=== PATIENT | male | born 1955 | race Caucasian/White ===

== ENCOUNTER 2017-04-02 16:01 | Outpatient (CLI) ==
[2017-04-02 16:09] LABS: BASOPHILS % (AUTO) 0.2 % (0.0-3.0); EOSINOPHILS % (AUTO) 0.1 % (0.0-7.0); HEMATOCRIT 45.8 % (42.0-52.0); HEMOGLOBIN 15.9 g/dl (14.0-18.0); IMMATURE GRANULOCYTE % (AUTO) 0.4 % (0.0-5.0); LYMPHOCYTES # (AUTO) 2.3 K/uL (0.60-3.4); LYMPHOCYTES % (AUTO) 22.9 (10.0-50.0); MEAN CORPUSCULAR HEMOGLOBIN 30.1 pg (27.0-31.0); MEAN CORPUSCULAR HGB CONC 34.7 (31.8-35.4); MEAN CORPUSCULAR VOLUME 86.6 fl (80.0-94.0); MONOCYTES # (AUTO) 0.7 K/uL (0.4-2.0); MONOCYTES % (AUTO) 6.8 (0-10); NEUTROPHILS # (AUTO) 7.1 K/ul (2.0-6.9); NEUTROPHILS % (AUTO) 69.6; PLATELET COUNT 283 10^3/uL (140-440); RED BLOOD COUNT 5.29 10^6/ul (4.70-6.10); WHITE BLOOD COUNT 10.23 K/ul (4.2-10.2)
[2017-04-02 16:16] LABS: BILIRUBIN,URINE Negative (NEGATIVE); KETONES,URINE Negative (NEGATIVE); LEUKOCYTE ESTERASE ,URINE Negative (NEGATIVE); NITRITE,URINE Negative (NEGATIVE); PH,URINE 5.5 (5-9); PROTEIN,URINE Negative (NEGATIVE); URINE, BLOOD 1+ (NEGATIVE)
[2017-04-02 16:19] LABS: ADD URINE MICROSCOPIC YES
[2017-04-02 16:20] LABS: BACTERIA,URINE TRACE (NOT PRESENT)
[2017-04-02 16:33] LABS: ALBUMIN 4.3 g/dL (3.4-5.0); ALBUMIN/GLOBULIN RATIO 1.16; ANION GAP 17.1; BILIRUBIN,TOTAL 0.49 mg/dL (0.00-1.20); BUN/CREATININE RATIO 18.88; CHOL/HDL RATIO 4.4 (4.5-6.4); CREATININE 0.9 mg/dL (0.60-1.10); POTASSIUM 4.1 mmol/L (3.5-5.1)
== END 2017-04-02 16:02 | disposition home or self-care (01) ==
LOC: LAB 16:01
PROVIDERS: ATTEND General Practice
DX: F43.9 Reaction to severe stress, unspecified (principal); Z12.5 Encounter for screening for malignant neoplasm of prostate; Z79.899 Other long term (current) drug therapy
CPT/HCPCS: 36415; 80053; 80061; 81001; 85025

== ENCOUNTER 2017-04-12 07:15 | Outpatient (CLI) ==
--- NOTE | 2017-04-12 09:07 | US ---
EXAM: Renal ultrasound. History: Microscopic hematuria. Comparison: CT abdomen pelvis 11/04/2007 Technique: Multiple sonographic images through the kidneys were obtained. Color duplex Doppler was used to interrogate vascular flow. Findings: Bladder is not well distended. Neither ureteral jet was seen within the bladder. The right kidney measures 9.1 cm in long length demonstrating normal cortical echogenicity. Mild hy dronephrosis. 2.8 cm anechoic right renal cyst. No shadowing calculi. The left kidney measures 10.7 cm in long length demonstrating normal cortical echogenicity with mild hydronephrosis. No masses or shadowing calculi. Impression: 1. Mild bilateral hydronephrosis. 2. Simple right renal cyst.
== END 2017-04-12 07:16 | disposition home or self-care (01) ==
LOC: RAD 07:15
PROVIDERS: ATTEND General Practice
DX: R31.29 Other microscopic hematuria (principal)
CPT/HCPCS: 76770

== ENCOUNTER 2017-10-22 13:19 | Outpatient (CLI) | payer OTHER | END 2017-10-22 13:20 | disposition home or self-care (01) | LOC: LAB 13:19 | PROVIDERS: ATTEND General Practice | DX: R05 Cough (principal); J02.9 Acute pharyngitis, unspecified | CPT/HCPCS: 87502; 87651 ==

== ENCOUNTER 2017-11-25 16:22 | Emergency (ER) ==
[2017-11-25 16:28] VITALS: BP 185/110; TEMP 98.9; BMI 28.1
[2017-11-25] MEDS ORDERED: SOLU-MEDROL 125 MG IM STA (16:51)
--- NOTE | 2017-11-25 16:55 | ED.PDOC ---
General ED Provider: Dr. VIDYA SOARES Chief Complaint: Back Pain Stated Complaint: Patient is a 62 year old femle who states that he has been using a hoe and lifting his ill 80 lb dog for the last few days. Since then heh as had severe lower back pain. Time Seen by Physician: 16:53 Mode of Arrival: Walk-In Information Source: Patient Exam Limitations: No limitations [facility] and Triage Documentation Reviewed and Agree: Yes Reviewed sepsis parameters & appropriate labs ordered?: No System Inflammatory Response Syndrome: Not Applicable Sepsis Protocol: For patient's 13 years and over: Temp is 96.8 and below OR 101 and greater Pulse >90 BPM Resp >20/minute Acutely Altered Mental Status Are patient's symptoms suggestive of a new infection, such as: -Pneumonia -Skin, Soft Tissue -Endocarditis -UTI -Bone, Joint Infection -Implantable Device -Acute Abdominal Infection -Wound Infection -Meningitis -Blood Stream Catheter Infection -Unknown System Inflammatory Response Syndrome: Not Applicable Musculoskeletal Complaint Exam - Back Pain Complaint/Exam Mechanism of Injury: Reports: No known trauma Onset/Duration: 3 days ago Symptoms Are: Still present Timing: Constant Initial Severity: Moderate Current Severity: Severe Location: Reports: Discrete Character: Reports: Aching, Throbbing Aggravating: Reports: Movements, Lifting, Bending, Walking Alleviating: Reports: None Associated Signs and Symptoms: Denies: Swelling, Redness, Bruising, Fever, Weakness, Numbness, Tingling, Abdominal pain, Flank pain, Bladder incontinence, Bowel incontinence, Weight loss, Pain with weight bearing Related History: Reports: Similar episode TAD Risk Factors: Reports: None AAA Risk Factors: Reports: None Cauda Equina Risk Factors: Reports: None Epidural Abcess Risk Factors: Reports: None Related Surgical History: Reports: None Focal Tenderness: Yes Paraspinal Muscle Tenderness: Yes Paraspinal Muscle Spasm: Yes Scoliosis: No SLR Test: Right Negative, Left Negative Hip Motion Testing Pain: Right Negative, Left Negative Focal Weakness: Present: None Focal Sensory Loss: Present: None Gait: Present: Normal, Abnormal Back Picture: 1 - tenderness Differential Diagnoses: Herniated Disk, Strain, Sprain Review of Systems - Review Of Systems Constitutional: Reports: No symptoms Eyes: Reports: No symptoms Ears, Nose, Mouth, Throat: Reports: No symptoms Respiratory: Reports: No symptoms Cardiac: Reports: No symptoms GI: Reports: No symptoms : Reports: No symptoms Musculoskeletal: Reports: Back pain Skin: Reports: No symptoms Neurological: Reports: No symptoms Endocrine: Reports: No symptoms Hematologic/Lymphatic: Reports: No symptoms All Other Systems: Reviewed and Negative Past Medical History - Past Medical History Previously Healthy: Yes Endocrine: Reports: None Cardiovascular: Reports: Hypertension Respiratory: Reports: None Hematological: Reports: None Gastrointestinal: Reports: None Genitourinary: Reports: None Neuro/Psych: Reports: Migraine, Depression Musculoskeletal: Reports: None Cancer: Reports: None - Surgical History General Surgical History: Reports: Appendectomy - Family History Family History: Reports: Unknown - Social History Smoking Status: Never smoker Hx Substance Use: No Alcohol Screening: None - Immunizations Tetanus Shot up to Date: Yes Physical Exam - Physical Exam Appearance: Ill-appearing Ill-appearing: Mild Pain Distress: Severe Neck: Supple Respiratory: Airway patent, Breath sounds clear, Breath sounds equal, Respirations nonlabored Cardiovascular: RRR, Pulses normal, No rub, No murmur GI/: Soft, Nontender, No masses, Bowel sounds normal, No Organomegaly Musculoskeletal: Limited ROM Skin: Warm, Dry, Normal color Neurological: Sensation intact, Motor intact, Reflexes intact, Cranial nerves intact, Alert, Oriented Psychiatric: Anxious Critical Care Note - Critical Care Note Total Time (mins): 0 Course - Course Orders, Labs, Meds: Orders Category Date Time Status Methylprednisolone Sod Succ/Pf [Solu-Medrol 125 mg] MEDS 11/25/17 16:51 Discontinued 125 mg IM ONCE STA Medications Discontinued Medications Generic Name Dose Route Start Last Admin Trade Name Freq PRN Reason Stop Dose Admin Methylprednisolone Sodium Succinate 125 mg 11/25/17 16:51 11/25/17 17:01 Solu-Medrol 125 Mg IM 11/25/17 16:52 125 mg ONCE STA Administration Vital Signs: Temp Pulse Resp BP Pulse Ox 11/25/17 16:23 98.9 F 104 H 20 185/110 H 98 Departure - Departure Time of Disposition: 16:53 Disposition: HOME SELF-CARE Discharge Problem: Backache Instructions: Back Pain (ED) Condition: Stable Pt referred to PMD for follow-up: Yes IPMP verified?: No Additional Instructions: Follow up with PCP in 3-4 days Take medications as prescribed Prescriptions: Hydrocodone/Acetaminophen [Dawn 5-325 Tablet] 1 tab PO Q6HR PRN #20 tablet PRN Reason: PAIN Allergies/Adverse Reactions: Allergies butorphanol tartrate [From Stadol] Allergy (Unverified 11/25/17 16:29) chlorpromazine HCl [From Thorazine] Allergy (Unverified 11/25/17 16:29) doxepin Allergy (Unverified 11/25/17 16:29) ketorolac tromethamine [From Toradol] Allergy (Unverified 11/25/17 16:29) nalbuphine HCl [From Nubain] Allergy (Unverified 11/25/17 16:29) prochlorperazine edisylate [From Compazine] Allergy (Unverified 11/25/17 16:29) prochlorperazine maleate [From Compazine] Allergy (Unverified 11/25/17 16:29) zolpidem tartrate [From Ambien] Allergy (Unverified 11/25/17 16:29) causes sleep walking RONY Inhibitors Adverse Reaction (Intermediate, Unverified 11/25/17 16:29) Cough Possibly related to Lisinopril. Medication was stopped on 11/21/17. lisinopril Adverse Reaction (Intermediate, Unverified 11/25/17 16:29) Cough Possibly related to Lisinopril. Medication was stopped 11/21/17. Home Medications: Ambulatory Orders Fluticasone Propionate [Flonase] 16 gm NS PRN 10/22/17 Hydrocodone/Acetaminophen [Dawn 5-325 Tablet] 1 tab PO Q6HR PRN #20 tablet Disposition Discussed With: Patient
== END 2017-11-25 17:56 | disposition home or self-care (01) ==
LOC: ED 16:22
DX: M54.5 Low back pain (principal); X50.0XXA Overexertion from strenuous movement or load, initial encounter
CPT/HCPCS: 96372; 99282

== ENCOUNTER 2018-07-08 08:00 | Outpatient (RCR) ==
--- NOTE | 2018-06-28 13:51 | RS.OPPTEV2 ---
Date of Note: 06/27/18 Visit #: 1 Number of visits approved by Insurance: 12+eval Date of Evaluation: 06/27/18 Payer Source: [place] Surgery Performed?: No Treatment Diagnosis: LBP History of Condition/Mechanism of Injury:: pt had a fall in Aug 2017 landing on concrete. pt has long history of L knee and foot pain. Prior Level of Function.....Patient was independent with: ADL's, Self Care, Caregiving, Ambulation/Mobility, Community Integration/Access Functional Limitations: Sleep, Lifting, Carrying, Sitting, Bending, Squatting, Ambulation, Community Access/Integration Current Subjective/complaints:: pt states he is fighting "3 things, my foot, my knee and my back" he states "I think they are related." pt states that he has a constant pain in his back with occaional radiating pain into BLE. Treatment Side (optional): N/A *Precautions: n/a Medical History Medical History: Hypertension, Arthritis Surgical History Comments:: appey, shld sx, knee arthroscopic sx. Smoking Status: Former smoker Hx Home Medications: lortab, losartan, flexeril Patient's Goals: decrease pain in low back. Pain Assessment - Pain Description Pain Location: Low back pain, L foot pain, L knee pain Pain Description: constant ache with occasional sharp pains. Current Pain Intensity: LBP 7/10, L knee 7/10, L foot 9/10 Functional Outcome Measure Oswestry LBP: 26 (52%) - G Codes & Severity Modifier G Codes & Modifier: mobility walking and moving around current: CK. mobility walking and moving around goal: CJ Source of G Code score: oswestry LBP scale Observation - Observation Inspection: pt appears shifted to R. Leg length discrepancy with RLE > LLE Posture: Forward Head, Rounded Shoulders, Increased Thoracic Kyphosis, Decreased Lumbar Lordosis Handedness: Right Gait - Gait Pattern Gait Comments: pt amb with pronated B feet with valgus on R knee with antalgic gait with decreased stance time on the L General Range of Motion: BUE WFL's. BLE WFL's with pain in lumbar spine and B knees with ROM. Muscle Strength: BUE 5/5. LLE hip flex 3+/5, knee flex/ext 4-/5 w pain, ankle DF/PF 4-/5. RLE hip flex 4-/5, knee flex/ext 4/5, ankle DF/PF 4+/5 - ROM Lumbar Flexion: Hand reach to Mid-Thighs Sidebending to Left: Reach to Mid-thigh Sidebending to Right: Reach to Mid-thigh Lumbar Spine ROM Limitations: Soft Tissue Tightness, Muscle Weakness, Pain Comments: pt with increased pain with lumbar ROM. - Strength Trunk Extension: 4- Good- Trunk Flexion: 3- Fair- Trunk Lateral Flexion: 3- Fair- Trunk Rotation: 3+ Fair+ - Special Tests SLR Test: Positive Left Palpation Palpation Findings: Tenderness, Trigger Point Comments:: pt with muscle guarding in lumbar spine with tenderness and trigger points on L lumbar proximal to SI and tenderness at L SI joint Sensation - Sensation Right Upper Extremity: Intact/Normal Left Upper Extremity: Intact/Normal Right Lower Extremity: Intact/Normal Left Lower Extremity: Impaired (pt reports decreased slight decreased sensation LLE) Balance - Sitting Balance Static Sitting Balance: Good Dynamic Sitting Balance: Good - Standing Balance Static Standing Balance: Good Dynamic Standing Balance: Good - Treatment Modality: Electrical Stim Unattended Parameters/Method Applied: IFC x 20 mins at 14ma Treatment Area: L lumbosacral area Patient Position: Left Sidelying - Heat/Cryotherapy Treatment: Hot Pack Comments:: lumbar spine Interventions - Exercise/Activities/Manual Therapy Exercises/Activities: attempted muscle energy technique, however pt unable to tolerate at this time. pt performed pelvic tilts x 4, gentle hamstring stretch, piriformis stretch, gentle ext stretch Manual Therapy: n/a HOME EXERCISE PROGRAM: pt given written HEP including : pelvic tilts, gentle hamstring stretch, piriformis stretch, standing lumbar ext stretch - Charges Timed Code Treatment Minutes: 47 Total Treatment Time: 63 Procedures billed for this date of service:: eval med, estim unattended, hot pack EVALUATION COMPLEXITY LEVEL EVALUATION COMPLEXITY LEVEL: HISTORY: Medium (htn, OA, low back pain), EXAM OF BODY SYSTEMS: Medium (pain, posture, strength, ROM), CLINICAL PRESENTATION: Medium (evolving), CLINICAL DECISION MAKING: Medium Assessment Assessment: pt presents with long hx of LBP with L knee and foot pain. pt with decreased lumbar ROM as well as decreased strength. pt with muscle tightness and guarding. Patient Education: Home Exercise Program, Education of Plan of Care Rehab Potential: Good Short Term Goals Goal #1: pt independent with initial HEP Goal to be met by: 07/18/18 Goal #2: pt with decreased pain in lumbar spine < 6/10 with activity Goal to be met by: 07/18/18 Goal #3: pt with decreased muscle tightness in hamstrings/piriformis R equal to L Goal to be met by: 07/18/18 Goal #4: Leg length equal BLE Can Sealer Goals Goal #1: pt demonstrate Lumbar ROM WFL's Goal to be met by: 08/08/18 Goal #2: pt with decreased pain < 4/10 with activity Goal to be met by: 08/08/18 Goal #3: pt demonstrate improved oswestry scale to < 20 Goal to be met by: 08/08/18 Plan - Treatment to be Provided Procedures: Therapeutic Exercises, Therapeutic Activity, Manual Therapy, Massage Modalities: Electrical Stimulation, Ultrasound/Phonophoresis, Cryotherapy, Hot Packs - Treatment Plan Frequency: 2-3x a week Duration: 6 weeks Dates of Intermediate Goals: 08/08/18 Expiration date of current Insurance Approval:: n/a - Treatment Code (1) Low back pain Code(s): M54.5 - LOW BACK PAIN (2) Decreased strength Code(s): R53.1 - WEAKNESS (3) Muscle tightness Code(s): M62.89 - OTHER SPECIFIED DISORDERS OF MUSCLE
--- NOTE | 2018-07-01 11:50 | RS.OPPTDN ---
Subjective Date of Note: 07/01/18 Visit #: 2 Number of visits approved by Insurance: 12 + eval= 13 total Date of Evaluation: 06/27/18 P[place] Source[place] Treatment Diagnosis: LBP Current Subjective/complaints:: pt states he was pretty "wiped out" after last visit. States he has been trying to do HEP with assist of . *Precautions: n/a Pain Assessment - Pain Description Pain Location: lumbar spine, L knee and L foot Current Pain Intensity: 7 Worst Pain Intensity: 8 - Treatment Modality: Ultrasound Parameters/Method Applied: 1.5 w/cm2 x 7 mins Treatment Area: R lumbar spine Patient Position: Left Sidelying - Heat/Cryotherapy Treatment: Hot Pack Comments:: lumbar spine x 20 mins Interventions - Exercise/Activities/Manual Therapy Exercises/Activities: pt received hamstring stretch, piriformis stretch, trunk rotation stretch, gentle knee to chest. Performed pelvic tilts x 5 reps, isometric hip add, resisted hip abd with red theraband x 10 reps with verbal cues for technique as well as multiple rest periods. Total minutes of Exercise: 22 mins Manual Therapy: pt received deep tissue massage with trigger point release to lumbar spine. pt with large trigger point to R lumbar spine, and L lumbar spine. Total minutes of Manual Therapy: 12 mins HOME EXERCISE PROGRAM: pt given written HEP including : pelvic tilts, gentle hamstring stretch, piriformis stretch, standing lumbar ext stretch. Added today : isometric hip add, resisted hip abd with red theraband - Charges Timed Code Treatment Minutes: 41 Total Treatment Time: 61 Procedures billed for this date of service:: exercise, manual therapy, ultrasound, hot pack Assessment: pt continues with significant pain in lumbar spine with significant hamstring, piriformis tightness. pt pain limits ability to perform daily activities. Patient Education: Home Exercise Program, Education of Plan of Care Patient demonstrates compliance with HEP?: Yes Short Term Goals Goal #1: pt independent with initial HEP Goal to be met by: 07/18/18 Progress towards Goal:: Progressing Goal #2: pt with decreased pain in lumbar spine < 6/10 with activity Goal to be met by: 07/18/18 Goal #3: pt with decreased muscle tightness in hamstrings/piriformis R equal to L Goal to be met by: 07/18/18 Progress towards Goal:: Progressing Goal #4: Leg length equal BLE Goal to be met by: 07/18/18 Soil Engineer Goals Goal #1: pt demonstrate Lumbar ROM WFL's Goal to be met by: 08/08/18 Progress towards goal: Progressing Goal #2: pt with decreased pain < 4/10 with activity Goal to be met by: 08/08/18 Goal #3: pt demonstrate improved oswestry scale to < 20 Goal to be met by: 08/08/18 Plan Dates of Soil Engineer Goals: 08/08/18 Expiration date of current Insurance Approval:: n/a PLAN: plan to continue to work on stretching and core strengthening as well as modalities to decrease pain.
--- NOTE | 2018-07-03 09:57 | RS.OPPTDN ---
Subjective Date of Note: 07/03/18 Visit #: 3 Number of visits approved by Insurance: 12 + eval Date of Evaluation: 06/27/18 P[place] Treatment Diagnosis: LBP *Precautions: n/a Pain Assessment - Pain Description Pain Location: low back pain Pain Description: Sharp, Aching Current Pain Intensity: 8-9/10 Other Comments regarding Pain:: pt states pain is much worse today because he worked on his dog kennel yesterday. - Treatment Modality: Ultrasound Parameters/Method Applied: 1.5w/cm2 x 8 mins Treatment Area: R lumbar area Patient Position: Prone - Heat/Cryotherapy Treatment: Hot Pack Comments:: lumbar Interventions - Exercise/Activities/Manual Therapy Exercises/Activities: pt unable to tolerate any stretches or exercises this visit due to increased pain. Manual Therapy: Deep tissue massage with trigger point release to lumbar spine. pt did have some relief with trigger point release. Total minutes of Manual Therapy: 12 mins HOME EXERCISE PROGRAM: pt given written HEP including : pelvic tilts, gentle hamstring stretch, piriformis stretch, standing lumbar ext stretch. Added today : isometric hip add, resisted hip abd with red theraband - Charges Timed Code Treatment Minutes: 26 Total Treatment Time: 52 Procedures billed for this date of service:: manual therapy, ultrasound, hot pack Assessment: pt with increased LBP this visit with pain radiating into thighs. pt continues with muscle guarding and trigger points in lumbar spine. Advised pt to try cold pack and rest when returned home. Patient Education: Home Exercise Program, Education of Plan of Care Patient demonstrates compliance with HEP?: Yes Short Term Goals Goal #1: pt independent with initial HEP Goal to be met by: 07/18/18 Progress towards Goal:: Progressing Goal #2: pt with decreased pain in lumbar spine < 6/10 with activity Goal to be met by: 07/18/18 (8-05/20) Goal #3: pt with decreased muscle tightness in hamstrings/piriformis R equal to L Goal to be met by: 07/18/18 Progress towards Goal:: Not Met Goal #4: Leg length equal BLE Goal to be met by: 07/18/18 Progress towards Goal:: Not Met Half-Way Goals Goal #1: pt demonstrate Lumbar ROM WFL's Goal to be met by: 08/08/18 Progress towards goal: Progressing Goal #2: pt with decreased pain < 4/10 with activity Goal to be met by: 08/08/18 Goal #3: pt demonstrate improved oswestry scale to < 20 Goal to be met by: 08/08/18 Plan Dates of Fur Cleaner Goals: 08/08/18 Expiration date of current Insurance Approval:: n/a PLAN: Continue to progress with lumbar stretching, core strengthening, modalities to decrease pain.
--- NOTE | 2018-07-05 13:26 | RS.OPPTDN ---
Subjective Date of Note: 07/05/18 Visit #: 4 Number of visits approved by Insurance: 12 + eval Date of Evaluation: 06/27/18 P[place] Treatment Diagnosis: LBP Current Subjective/complaints:: pt states he feels the exercises are helping, states he has been trying to do them at home. *Precautions: n/a Pain Assessment - Pain Description Pain Location: low back pain L worse than R Pain Description: Sharp, Aching Current Pain Intensity: 6/10 Other Comments regarding Pain:: after treatment -01/17 - Treatment Modality: Ultrasound Parameters/Method Applied: 1.5w/cm2 x 8 mins Treatment Area: lumbar area focus on R lumbosacral Patient Position: Left Sidelying - Heat/Cryotherapy Treatment: Hot Pack Comments:: lumbar spine Interventions - Exercise/Activities/Manual Therapy Exercises/Activities: pt received BLE hamstring, piriformis and knee to chest gently. Isometric hip add x 10, resisted hip abd with red t band x 10, pelvic tilt x 5, gentle HS with abd and back stabilized. Gentle muscle energy with R hip isometric hip flex, L with isometric hip ext Total minutes of Exercise: 21 Manual Therapy: Deep tissue massage with trigger point release to lumbar spine. pt continues with large area of trigger points and muscle guarding to R lumbosacral area with point tenderness to R SI Total minutes of Manual Therapy: 12 HOME EXERCISE PROGRAM: pt given written HEP including : pelvic tilts, gentle hamstring stretch, piriformis stretch, standing lumbar ext stretch. Added today : isometric hip add, resisted hip abd with red theraband - Charges Timed Code Treatment Minutes: 41 Total Treatment Time: 60 Procedures billed for this date of service:: ex, manual tx, u/s hot pack Assessment: pt with decreased pain this visit able to participate with ex. Pt continues with muscle tightness however is able to tolerate hamstring and gentle knee to chest stretching. Patient Education: Home Exercise Program, Education of Plan of Care Patient demonstrates compliance with HEP?: Yes Short Term Goals Goal #1: pt independent with initial HEP Goal to be met by: 07/18/18 Progress towards Goal:: Met Goal #2: pt with decreased pain in lumbar spine < 6/10 with activity Goal to be met by: 07/18/18 (8-05/20) Progress towards Goal:: Progressing Goal #3: pt with decreased muscle tightness in hamstrings/piriformis R equal to L Goal to be met by: 07/18/18 Progress towards Goal:: Progressing Goal #4: Leg length equal BLE Goal to be met by: 07/18/18 Progress towards Goal:: Progressing Forensic Economist Goals Goal #1: pt demonstrate Lumbar ROM WFL's Goal to be met by: 08/08/18 Progress towards goal: Progressing Goal #2: pt with decreased pain < 4/10 with activity Goal to be met by: 08/08/18 Goal #3: pt demonstrate improved oswestry scale to < 20 Goal to be met by: 08/08/18 Progress towards goal: Progressing Plan Dates of Forensic Economist Goals: 08/08/18 Expiration date of current Insurance Approval:: n/a PLAN: continue to work on core strengthening, gentle stretching, modalities and manual therapy to decrease pain.
--- NOTE | 2018-07-08 10:14 | RS.OPPTDN ---
Subjective Date of Note: 07/08/18 Visit #: 5 Number of visits approved by Insurance: 12 + eval Date of Evaluation: 06/27/18 P[place] Source[place] Treatment Diagnosis: LBP Current Subjective/complaints:: pt states he is hurting a bit worse today. States he lifted something a little heavy instead of waiting for to help. *Precautions: n/a Pain Assessment - Pain Description Pain Location: lumbar R worse than L Pain Description: Sharp, Aching Current Pain Intensity: 8 - Heat/Cryotherapy Treatment: Hot Pack Comments:: lumbar spine - Traction Treatment Method: Mechanical, Lumbar Patient Position: Supine Amount of Force Applied: 50lb Hold Time: 30sec Rest Time: 5sec Duration of treatment: 10 mins Traction Treatment Comment: pt states it felt good and relieved some symptoms during treatment. Interventions - Exercise/Activities/Manual Therapy Exercises/Activities: pt received lumbar traction and stated he thought he was done for today. States that he feels like it helped but can't do anymore therapy today. Manual Therapy: n/a HOME EXERCISE PROGRAM: pt given written HEP including : pelvic tilts, gentle hamstring stretch, piriformis stretch, standing lumbar ext stretch. Added today : isometric hip add, resisted hip abd with red theraband - Charges Timed Code Treatment Minutes: 21 Total Treatment Time: 38 Procedures billed for this date of service:: mechanical traction, hot pack Assessment: pt continues with significant pain with muscle tightness and guarding. pt unable to tolerate ex or ultrasound this visit after traction. Will reassess pain on next visit. Patient Education: Home Exercise Program, Education of Plan of Care Patient demonstrates compliance with HEP?: Yes Short Term Goals Goal #1: pt independent with initial HEP Goal to be met by: 07/18/18 Progress towards Goal:: Met Goal #2: pt with decreased pain in lumbar spine < 6/10 with activity Goal to be met by: 07/18/18 (8-9) Progress towards Goal:: Progressing Goal #3: pt with decreased muscle tightness in hamstrings/piriformis R equal to L Goal to be met by: 07/18/18 Progress towards Goal:: Progressing Goal #4: Leg length equal BLE Goal to be met by: 07/18/18 Progress towards Goal:: Progressing Dental Appliance Fixer Goals Goal #1: pt demonstrate Lumbar ROM WFL's Goal to be met by: 08/08/18 Progress towards goal: Progressing Goal #2: pt with decreased pain < 4/10 with activity Goal to be met by: 08/08/18 Goal #3: pt demonstrate improved oswestry scale to < 20 Goal to be met by: 08/08/18 Progress towards goal: Progressing Plan Dates of Dental Appliance Fixer Goals: 08/08/18 Expiration date of current Insurance Approval:: n/a PLAN: plan to reassess pain on next visit, may try traction second time and continue with gentle stretching and strengthening.
== END 2018-07-10 23:59 ==
DX: M54.5 Low back pain (principal); R53.1 Weakness; M62.89 Other specified disorders of muscle

== ENCOUNTER 2019-05-09 09:00 | Outpatient (RCR) | payer OTHER ==
--- NOTE | 2019-04-21 11:58 | RS.OPPTEV2 ---
Date of Note: 04/21/19 Visit #: 1 Number of visits approved by Insurance: eval +14 visits Date of Evaluation: 04/21/19 [place] Surgery Performed?: Yes (L TKR 04/15/19) Treatment Diagnosis: OA L knee History of Condition/Mechanism of Injury:: Pt with long history of B knee pain due to OA. No definite injury noted. pt underwent L TKR on 04/15/19. DC from hospital 04/16/19. Prior Level of Function.....Patient was independent with: ADL's, Self Care, Caregiving, Ambulation/Mobility, Community Integration/Access Level of Function: prior to surgery pt amb independently without cane with pain in B knees, L foot and pt does have chronic LBP. pt was active working out in yard and walking dog 3x a day. Functional Limitations: Sleep, Standing, Bending, Squatting, Ambulation, Community Access/Integration Current Subjective/complaints:: pt states that he has 8 steps to get to bathroom at home with 3 steps to get to porch. pt states he has been walking with his walker since dc from hospital. pt reports that he has been using ice to decrease pain and edema. Treatment Side (optional): Left *Precautions: n/a Medical History Medical History: Hypertension, Arthritis Surgical History: Knee Replacement (04/15/19) Surgical History Comments:: monty khan sx, knee arthroscopic sx. Smoking Status: Former smoker Hx Home Medications: losartan, flexeril, metoprolol, vit d, percocet Patient's Goals: "be able to go outside to take care of my dog" Pain Assessment - Pain Description Pain Location: L knee Pain Description: Burning, Aching Current Pain Intensity: 8 Worst Pain Intensity: 10 Functional Outcome Measure LE Functional Scale: 7 - G Codes & Severity Modifier G Codes & Modifier: mobility current: CM. mobility goal CK Source of G Code score: LE functional scale Observation - Observation Posture: Forward Head, Rounded Shoulders Handedness: Right Girth Measurement Lower: LLE: 10 cm above knee 47.5cm. knee 42.8 cm. ankle 24cm. RLE: 10 cm above knee 44.2cm, knee 38.5cm, ankle 21.5cm Gait - Gait Pattern General Gait Pattern Observation: Antalgic Gait Gait Comments: pt amb with antalgic gait with decreased step length, decreased heel strike/toe off gait pattern and decreased knee flex. General Range of Motion: BUE WFL's. RLE WFL's. LLE hip, ankle WFL's Muscle Strength: LUE 5/5, RUE shld flex 4/5, elbow flex/ext 5/5. RLE 5/5 with some pain with flex. LLE hip flex 4/5 , ankle DF/PF 4/5 Knee ROM: Right WFL's Knee Muscle Strength: Right WFL's - Left Knee ROM Left Knee Extension: -11 Left Knee Flexion: 80 (AAROM) Knee ROM Limitations: Soft Tissue Tightness, Muscle Weakness, Pain - Left Knee Strength Left Knee Extension: 3- Fair- Left Knee Flexion: 3- Fair- - Special Tests Comments: s/p tkr Palpation Palpation Findings: Tenderness Comments:: tenderness to palpation L knee Sensation - Sensation Right Upper Extremity: Intact/Normal Left Upper Extremity: Intact/Normal Right Lower Extremity: Intact/Normal Left Lower Extremity: Intact/Normal Comments: small area of n/t in gordo incision area Balance - Sitting Balance Static Sitting Balance: Normal Dynamic Sitting Balance: Normal - Standing Balance Static Standing Balance: Fair Dynamic Standing Balance: Poor Interventions - Exercise/Activities/Manual Therapy Exercises/Activities: pt performed AP, QS, SAQ, SLR (with assist), LAQ, HS, x 5- 10 reps Manual Therapy: n/a HOME EXERCISE PROGRAM: pt given written HEP including: AP, QS, HS, SAQ, LAQ, heel prop - Charges Timed Code Treatment Minutes: 46 Total Treatment Time: 46 Procedures billed for this date of service:: margarita erazo, ex EVALUATION COMPLEXITY LEVEL EVALUATION COMPLEXITY LEVEL: HISTORY: Low, EXAM OF BODY SYSTEMS: Low, CLINICAL PRESENTATION: Low, CLINICAL DECISION MAKING: Low Assessment Assessment: pt presents s/p L TKR on 04/15/19. pt with decreased ROM L knee, decreased strength, balance as well as difficulty walking. Pain L knee. Feel pt would benefit from skilled PT for therex for LE strengthening, balance as well as gait training to improve functional mobility and decrease pain. Patient Education: Home Exercise Program, Education of Plan of Care Rehab Potential: Good Short Term Goals Goal #1: pt independent with initial HEP Goal to be met by: 05/09/19 Goal #2: Improve L knee flex 90 ext -5 Goal to be met by: 05/09/19 (4/10) Goal #3: Decrease edema LLE Goal to be met by: 05/09/19 Goal #4: Decrease pain L knee < 7/10 Goal to be met by: 05/09/19 Detention Goals Goal #1: Improve L knee flex 100 ext 0 Goal to be met by: 05/30/19 Goal #2: pt amb with least AD with improved gait sequencing no LOB Goal to be met by: 05/30/19 Goal #3: pt demonstrate improved LE functional scale to >25 Goal to be met by: 05/30/19 Goal #4: pt ascend/descend steps at home independently with less pain Goal to be met by: 05/30/19 Plan - Treatment to be Provided Procedures: Therapeutic Exercises, Therapeutic Activity, Gait Training Modalities: Electrical Stimulation, Ultrasound/Phonophoresis, Cryotherapy, Hot Packs - Treatment Plan Frequency: 2-3x a week Duration: 6 weeks Dates of Detention Goals: 05/30/19 Expiration date of current Insurance Approval:: n/a - Treatment Code (1) Osteoarthritis Code(s): M19.90 - UNSPECIFIED OSTEOARTHRITIS, UNSPECIFIED SITE Qualifiers: Osteoarthritis location: knee Laterality: left (2) Aftercare following left knee joint replacement surgery Code(s): Z47.1 - AFTERCARE FOLLOWING JOINT REPLACEMENT SURGERY; Z96.652 - PRESENCE OF LEFT ARTIFICIAL KNEE JOINT (3) Gait difficulty Code(s): R26.9 - UNSPECIFIED ABNORMALITIES OF GAIT AND MOBILITY (4) Decreased strength Code(s): R53.1 - WEAKNESS
--- NOTE | 2019-04-23 11:43 | RS.OPPTDN ---
Subjective Date of Note: 04/23/19 Visit #: 2 Number of visits approved by Insurance: 14 + eval Date of Evaluation: 04/21/19 [place] Treatment Diagnosis: OA L knee Current Subjective/complaints:: pt states he has been trying to do some of the exercises. States that he did take pain meds prior to PT appt this date. *Precautions: n/a Pain Assessment - Pain Description Pain Location: L knee Pain Description: Sharp, Aching Current Pain Intensity: 7 - Heat/Cryotherapy Treatment: Cryotherapy Comments:: 10 mins after ex Interventions - Exercise/Activities/Manual Therapy Exercises/Activities: pt performed LLE QS, HS, SAQ, SLR, hip abd/add, LAQ x 15 reps with rest periods between ex. pt also performed standing hip flex, standing hamstring curl x 10 reps. Worked with patient on gait technique with step forward and back focus on knee flex, heel strike. pt amb with rwx from dept to car without rest period. pt continues to require cues for gait technique , pt tends to ext trunk to swing LLE, however can correct with cues. Total minutes of Exercise: 44 Manual Therapy: n/a HOME EXERCISE PROGRAM: pt given written HEP including: AP, QS, HS, SAQ, LAQ, heel prop. Added standing hip flex and standing ham curls 04/23/19 - Charges Timed Code Treatment Minutes: 44 Total Treatment Time: 53 Procedures billed for this date of service:: ex 3, CP Assessment: pt improved with ex tolerance as well as knee ext improved from -11 to -8 this date. pt with decreased edema noted. pt continues to require cues for gait technique. Patient Education: Home Exercise Program, Education of Plan of Care Patient demonstrates compliance with HEP?: Yes Short Term Goals Goal #1: pt independent with initial HEP Goal to be met by: 05/09/19 Progress towards Goal:: Progressing Goal #2: Improve L knee flex 90 ext -5 Goal to be met by: 05/09/19 (flex 80 ext -8) Progress towards Goal:: Progressing Goal #3: Decrease edema LLE Goal to be met by: 05/09/19 Progress towards Goal:: Progressing Goal #4: Decrease pain L knee < 7/10 Goal to be met by: 05/09/19 Progress towards Goal:: Progressing Residential Goals Goal #1: Improve L knee flex 100 ext 0 Goal to be met by: 05/30/19 Goal #2: pt amb with least AD with improved gait sequencing no LOB Goal to be met by: 05/30/19 Goal #3: pt demonstrate improved LE functional scale to >25 Goal to be met by: 05/30/19 Goal #4: pt ascend/descend steps at home independently with less pain Goal to be met by: 05/30/19 Plan Dates of Residential Goals: 05/30/19 Expiration date of current Insurance Approval:: n/a PLAN: plan to continue to progress ex as well as focus on gait sequencing.
--- NOTE | 2019-04-25 11:33 | RS.OPPTDN ---
Subjective Date of Note: 04/25/19 Visit #: 3 Number of visits approved by Insurance: 14 + eval Date of Evaluation: 04/21/19 [place] Treatment Diagnosis: OA L knee Current Subjective/complaints:: pt states he did not rest well last night. pt states he is hurting more today, he feels is because he did not rest well last night. *Precautions: n/a Pain Assessment - Pain Description Pain Location: L knee Pain Description: Burning, Sharp, Aching Current Pain Intensity: 7-8/10 - Treatment Modality: Electrical Stim Unattended Parameters/Method Applied: high volt x 4 electodes at 215pv x 20 mins Treatment Area: L knee Patient Position: Supine Comments: after ex - Heat/Cryotherapy Treatment: Cryotherapy Comments:: L knee and L ankle with estim Interventions - Exercise/Activities/Manual Therapy Exercises/Activities: pt performed LLE QS, HS, hip abd/add, SAQ, SLR x 2 sets of 10 reps, LAQ x 10 reps, standing: hip flex, hamstring curl and short squats x 10 reps. pt requires rest periods during ex. pt amb with straight cane 40 ft x 2 with SBA. pt continues to lean back and swing leg forward demonstrating decreased L knee flex, decreased L heel strike. pt corrects with verbal cues, however requires repeated cues. pt with no LOB with cane.pt with edema L knee as well as L ankle this date. Total minutes of Exercise: 31 Manual Therapy: n/a HOME EXERCISE PROGRAM: pt given written HEP including: AP, QS, HS, SAQ, LAQ, heel prop. Added standing hip flex and standing ham curls 04/23/19 - Charges Timed Code Treatment Minutes: 36 Total Treatment Time: 56 Procedures billed for this date of service:: ex 2, estim, cp Assessment: pt progressing with L quad strength. pt is limited due to continued pain and edema. pt improving with gait sequencing and was able to amb with cane in dept. Patient Education: Home Exercise Program, Education of Plan of Care Patient demonstrates compliance with HEP?: Yes Short Term Goals Goal #1: pt independent with initial HEP Goal to be met by: 05/09/19 Progress towards Goal:: Progressing Goal #2: Improve L knee flex 90 ext -5 Goal to be met by: 05/09/19 (flex 80 ext -8) Progress towards Goal:: Progressing Goal #3: Decrease edema LLE Goal to be met by: 05/09/19 Progress towards Goal:: Progressing Goal #4: Decrease pain L knee < 7/10 Goal to be met by: 05/09/19 Progress towards Goal:: Progressing Residential Goals Goal #1: Improve L knee flex 100 ext 0 Goal to be met by: 05/30/19 Goal #2: pt amb with least AD with improved gait sequencing no LOB Goal to be met by: 05/30/19 Goal #3: pt demonstrate improved LE functional scale to >25 Goal to be met by: 05/30/19 Goal #4: pt ascend/descend steps at home independently with less pain Goal to be met by: 05/30/19 Plan Dates of Residential Goals: 05/30/19 Expiration date of current Insurance Approval:: n/a PLAN: plan to continue with strengthening, ROM as well as gait training to improve functional mobility and return to normal gait pattern.
--- NOTE | 2019-04-28 11:33 | RS.OPPTDN ---
Subjective Date of Note: 04/28/19 Visit #: 4 Number of visits approved by Insurance: 14+ eval Date of Evaluation: 04/21/19 [place] Treatment Diagnosis: OA L knee Current Subjective/complaints:: pt states he has been using his cane all the time since last PT visit. States he was able to walk outside this weekend to see his dog. *Precautions: n/a Pain Assessment - Pain Description Pain Location: L knee Pain Description: Burning, Aching Current Pain Intensity: 5/10 - Heat/Cryotherapy Treatment: Cryotherapy Comments:: L knee Interventions - Exercise/Activities/Manual Therapy Exercises/Activities: pt performed QS, HS, SAQ, LAQ, SLR, hip abd/add, LAQ 2 sets of 10 reps. pt also performed standing hip flex, hamstring curls, 2 sets of 10 reps, forward lunges, short squats x 10 reps. hamstring sets in sup x 10, hamstring stretch. pt also rode bike x 1-2 mins unable to complete full revolution peddled back and forth. Total minutes of Exercise: 36 Manual Therapy: n/a HOME EXERCISE PROGRAM: pt given written HEP including: AP, QS, HS, SAQ, LAQ, heel prop. Added standing hip flex and standing ham curls 04/23/19 - Charges Timed Code Treatment Minutes: 36 Total Treatment Time: 51 Procedures billed for this date of service:: ex2, cp Assessment: pt improving with ROM L knee flex 90 ext -6 (AAROM). pt also improved to amb with cane vs rwx and improvement noted in gait pattern with increased knee flex . pt Patient Education: Home Exercise Program, Education of Plan of Care Patient demonstrates compliance with HEP?: Yes Short Term Goals Goal #1: pt independent with initial HEP Goal to be met by: 05/09/19 Progress towards Goal:: Progressing Goal #2: Improve L knee flex 90 ext -5 Goal to be met by: 05/09/19 (flex 90 ext -6) Progress towards Goal:: Partially Met Goal #3: Decrease edema LLE Goal to be met by: 05/09/19 Progress towards Goal:: Progressing Goal #4: Decrease pain L knee < 7/10 Goal to be met by: 05/09/19 (5/10) Progress towards Goal:: Met Senior Care Goals Goal #1: Improve L knee flex 100 ext 0 Goal to be met by: 05/30/19 Goal #2: pt amb with least AD with improved gait sequencing no LOB Goal to be met by: 05/30/19 Goal #3: pt demonstrate improved LE functional scale to >25 Goal to be met by: 05/30/19 Goal #4: pt ascend/descend steps at home independently with less pain Goal to be met by: 05/30/19 Plan Dates of Senior Care Goals: 05/30/19 Expiration date of current Insurance Approval:: n/a PLAN: plan to continue with stretching and strengthening to improve ROM L knee as well as gait training to improve gait pattern.
--- NOTE | 2019-04-30 13:57 | RS.OPPTDN ---
Subjective Date of Note: 04/30/19 Visit #: 5 Number of visits approved by Insurance: 14 + eval Date of Evaluation: 04/21/19 [place] Treatment Diagnosis: OA L knee Current Subjective/complaints:: pt states that he is hurting more today. States he walked quite a bit yesterday and went up and down the stairs several times. pt reports that he has been having muscle spasms in his hamstrings and they kept him awake last night. *Precautions: n/a Pain Assessment - Pain Description Pain Location: L knee Pain Description: Aching Current Pain Intensity: 03/19 Other Comments regarding Pain:: states he took pain meds prior to PT - Treatment Modality: Electrical Stim Unattended Parameters/Method Applied: high volt with 4 electrodes at 200pv x 20 mins Treatment Area: L knee Patient Position: Supine - Heat/Cryotherapy Treatment: Cryotherapy Comments:: L knee Interventions - Exercise/Activities/Manual Therapy Exercises/Activities: pt performed L knee QS, HS, hip abd, SLR, SAQ, hamstring sets, and LAQ x 2 sets of 10 reps. Hamstring stretch. pt also performed standing hip flex, forward lunges 2 sets of 10 reps, and standing ham curls x 10 (pt began having muscle spasms). pt performed leg press 45# x 10, 60# x 10, 75# x 10 with BLE. Total minutes of Exercise: 42 mins Manual Therapy: n/a HOME EXERCISE PROGRAM: pt given written HEP including: AP, QS, HS, SAQ, LAQ, heel prop. Added standing hip flex and standing ham curls 04/23/19 - Charges Timed Code Treatment Minutes: 42 Total Treatment Time: 69 Procedures billed for this date of service:: ex3, estim, cp Assessment: pt continues to progress with gait with cane. pt progressing with ROM and strength. pt limited this visit due to muscle spasms as well as pain. pt has met STG 1, 3, 4 pt progressing toward remaining goals. Patient Education: Home Exercise Program, Education of Plan of Care Patient demonstrates compliance with HEP?: Yes Short Term Goals Goal #1: pt independent with initial HEP Goal to be met by: 05/09/19 Progress towards Goal:: Met Goal #2: Improve L knee flex 90 ext -5 Goal to be met by: 05/09/19 (flex 90 ext -6) Progress towards Goal:: Partially Met Goal #3: Decrease edema LLE Goal to be met by: 05/09/19 Progress towards Goal:: Met Goal #4: Decrease pain L knee < 7/10 Goal to be met by: 05/09/19 (5/10) Progress towards Goal:: Met Industrial Sales Engineer Goals Goal #1: Improve L knee flex 100 ext 0 Goal to be met by: 05/30/19 Progress towards goal: Progressing Goal #2: pt amb with least AD with improved gait sequencing no LOB Goal to be met by: 05/30/19 Progress towards goal: Progressing Goal #3: pt demonstrate improved LE functional scale to >25 Goal to be met by: 05/30/19 Progress towards goal: Progressing Goal #4: pt ascend/descend steps at home independently with less pain Goal to be met by: 05/30/19 Progress towards goal: Progressing Plan Dates of Custodial Goals: 05/30/19 Expiration date of current Insurance Approval:: n/a PLAN: plan to continue to progress with strengthening and ROM.
--- NOTE | 2019-05-02 13:36 | RS.OPPTDN ---
Subjective Date of Note: 05/02/19 Visit #: 6 Number of visits approved by Insurance: 14 + eval Date of Evaluation: 04/21/19 [place] Treatment Diagnosis: OA L knee Current Subjective/complaints:: pt states that MD told him he needed to work on ROM. *Precautions: n/a Pain Assessment - Pain Description Pain Location: L knee Pain Description: Sharp, Aching Current Pain Intensity: 5-6 - Treatment Modality: Electrical Stim Unattended Parameters/Method Applied: high volt x 4 electrodes x 20 mins at 185pv and 200pv after ex. Treatment Area: L knee Patient Position: Supine - Heat/Cryotherapy Treatment: Cryotherapy Comments:: with estim Interventions - Exercise/Activities/Manual Therapy Exercises/Activities: pt performed QS with heel prop, HS, SAQ, SLR, hip abd, LAQ 2 sets of 10 reps. pt rode bike x approx 2 mins able to make complete revolution. pt performed leg press 2 sets of 10 reps at 90#. Standing LLE hip flex, ham curls, short squats 2 sets of 10 reps. Total minutes of Exercise: 41 Manual Therapy: n/a HOME EXERCISE PROGRAM: pt given written HEP including: AP, QS, HS, SAQ, LAQ, heel prop. Added standing hip flex and standing ham curls 04/23/19 - Charges Timed Code Treatment Minutes: 41 Total Treatment Time: 62 Procedures billed for this date of service:: ex 3, estim, cp Assessment: pt progressing with improved ROM as well as improved gait pattern with cane. pt has met STG 1, 3, 4. Patient Education: Home Exercise Program, Education of Plan of Care Patient demonstrates compliance with HEP?: Yes Short Term Goals Goal #1: pt independent with initial HEP Goal to be met by: 05/09/19 Progress towards Goal:: Met Goal #2: Improve L knee flex 90 ext -5 Goal to be met by: 05/09/19 (flex 92 ext -6) Progress towards Goal:: Partially Met Goal #3: Decrease edema LLE Goal to be met by: 05/09/19 Progress towards Goal:: Met Goal #4: Decrease pain L knee < 7/10 Goal to be met by: 05/09/19 (5/10) Progress towards Goal:: Met Senior Care Goals Goal #1: Improve L knee flex 100 ext 0 Goal to be met by: 05/30/19 Progress towards goal: Progressing Goal #2: pt amb with least AD with improved gait sequencing no LOB Goal to be met by: 05/30/19 Progress towards goal: Progressing Goal #3: pt demonstrate improved LE functional scale to >25 Goal to be met by: 05/30/19 Progress towards goal: Progressing Goal #4: pt ascend/descend steps at home independently with less pain Goal to be met by: 05/30/19 Progress towards goal: Progressing Plan Dates of Senior Care Goals: 05/30/19 Expiration date of current Insurance Approval:: n/a PLAN: plan to progress with strengthening, ROM as well as gait training and modalities to improve ROM and functional mobility.
--- NOTE | 2019-05-05 11:36 | RS.OPPTDN ---
Subjective Date of Note: 05/05/19 Visit #: 7 Number of visits approved by Insurance: 14 + eval Date of Evaluation: 04/21/19 [place] Treatment Diagnosis: OA L knee Current Subjective/complaints:: pt states that he is more sore today, however has not taken pain medicine today. He states that he is trying to "get off that stuff". *Precautions: n/a Pain Assessment - Pain Description Pain Location: L knee Pain Description: Aching Current Pain Intensity: 5 Interventions - Exercise/Activities/Manual Therapy Exercises/Activities: pt rode bike x 2 1/2 mins able to make full revolution backward, unable to make full revolution forward. pt performed LLE QS with heel prop, ham sets, HS, SLR 2 sets of 10 reps. pt performed SAQ and hip flex with 1 1/2#wt 2 sets of 10 reps. pt also performed LAQ x 2sets of 10. Leg press with 90 # 3 sets of 10 reps. Standing hip flex, short squats, ham curls, forward lunges 2 sets of 10 reps. pt amb without cane independently pt with improved sequencing while using cane. Total minutes of Exercise: 43 Manual Therapy: n/a HOME EXERCISE PROGRAM: pt given written HEP including: AP, QS, HS, SAQ, LAQ, heel prop. Added standing hip flex and standing ham curls 04/23/19 - Objective Findings Observations,measurements,etc.: ROM L knee flex AAROM 94 ext -6 - Charges Timed Code Treatment Minutes: 43 Total Treatment Time: 50 Procedures billed for this date of service:: ex 3 Assessment: pt has met STG 1, 3, 4 and partially met 2. pt progressing toward LTG. pt has made improvement with ROM as well as strength. Patient Education: Home Exercise Program, Education of Plan of Care Patient demonstrates compliance with HEP?: Yes Short Term Goals Goal #1: pt independent with initial HEP Goal to be met by: 05/09/19 Progress towards Goal:: Met Goal #2: Improve L knee flex 90 ext -5 Goal to be met by: 05/09/19 (flex 94 ext -6) Progress towards Goal:: Partially Met Goal #3: Decrease edema LLE Goal to be met by: 05/09/19 Progress towards Goal:: Met Goal #4: Decrease pain L knee < 7/10 Goal to be met by: 05/09/19 (5/10) Progress towards Goal:: Met Peripatologist Goals Goal #1: Improve L knee flex 100 ext 0 Goal to be met by: 05/30/19 Progress towards goal: Progressing Goal #2: pt amb with least AD with improved gait sequencing no LOB Goal to be met by: 05/30/19 Progress towards goal: Progressing Goal #3: pt demonstrate improved LE functional scale to >25 Goal to be met by: 05/30/19 Progress towards goal: Progressing Goal #4: pt ascend/descend steps at home independently with less pain Goal to be met by: 05/30/19 Progress towards goal: Progressing Plan Dates of [facility] Goals: 05/30/19 Expiration date of current Insurance Approval:: n/a PLAN: May try to warm up hamstrings prior to stretching as well as continue with ROM, strengthening.
--- NOTE | 2019-05-08 11:46 | RS.OPPTDN ---
Subjective Date of Note: 05/08/19 Visit #: 8 Number of visits approved by Insurance: 14+ eval Date of Evaluation: 04/21/19 Payer Source: [place] Treatment Diagnosis: OA L knee Current Subjective/complaints:: pt states that he has been practicing ex, states he has been staying home alone since his returned to work. *Precautions: n/a Pain Assessment - Pain Description Pain Location: L knee Pain Description: Tightness, Aching Current Pain Intensity: 5 - Treatment Modality: Electrical Stim Unattended Parameters/Method Applied: hivolt with 4 small electrodes at 150 and 180pv x 20 mins Treatment Area: L knee Patient Position: Supine - Heat/Cryotherapy Treatment: Cryotherapy Comments:: L knee with estim Interventions - Exercise/Activities/Manual Therapy Exercises/Activities: pt performed LLE QS with heel prop, Ham sets, HS 2 sets of 10 reps, performed SAQ, hip flex, SLR with 1 1/2#wt 2 sets of 10 reps. pt also performed LAQ 2 sets of 10 reps. Leg press with 90# 3 sets of 10. Standing hip flex, ham curls, short squats, forward lunges 2 sets of 10 reps. Rode bike able to make complete revolution total of 2-3 mins, was able to ride nonstop x 1 min. Manual Therapy: n/a HOME EXERCISE PROGRAM: pt given written HEP including: AP, QS, HS, SAQ, LAQ, heel prop. Added standing hip flex and standing ham curls 04/23/19 - Charges Timed Code Treatment Minutes: 34 Total Treatment Time: 54 Procedures billed for this date of service:: ex 2, estim, CP Assessment: pt progressing toward goals. pt has met all STG's and is progressing toward remaining goals. pt has made improvement with ROM, strength as well as decrease pain. Patient Education: Home Exercise Program, Education of Plan of Care Patient demonstrates compliance with HEP?: Yes Short Term Goals Goal #1: pt independent with initial HEP Goal to be met by: 05/09/19 Progress towards Goal:: Met Goal #2: Improve L knee flex 90 ext -5 Goal to be met by: 05/09/19 (flex 96 ext -5) Progress towards Goal:: Met Goal #3: Decrease edema LLE Goal to be met by: 05/09/19 Progress towards Goal:: Met Goal #4: Decrease pain L knee < 7/10 Goal to be met by: 05/09/19 (5/10) Progress towards Goal:: Met Human Resources Safety Manager Goals Goal #1: Improve L knee flex 100 ext 0 Goal to be met by: 05/30/19 Progress towards goal: Progressing Goal #2: pt amb with least AD with improved gait sequencing no LOB Goal to be met by: 05/30/19 Progress towards goal: Progressing Goal #3: pt demonstrate improved LE functional scale to >25 Goal to be met by: 05/30/19 Progress towards goal: Progressing Goal #4: pt ascend/descend steps at home independently with less pain Goal to be met by: 05/30/19 Progress towards goal: Progressing Plan Dates of Human Resources Safety Manager Goals: 05/30/19 Expiration date of current Insurance Approval:: n/a PLAN: plan to progress with LE strengthening, ROM as well as gait training to improve functional moblity.
--- NOTE | 2019-05-09 10:03 | RS.OPPTDN ---
Subjective Date of Note: 05/09/19 Visit #: 9 Number of visits approved by Insurance: 14 + eval Date of Evaluation: 04/21/19 Payer Source: [place] Treatment Diagnosis: OA L knee Current Subjective/complaints:: pt states that he is more sore today. States that he is doing HEP. Feels he is doing better. *Precautions: n/a Pain Assessment - Pain Description Pain Location: L knee Pain Description: Aching Current Pain Intensity: 5 - Heat/Cryotherapy Treatment: Hot Pack Comments:: to hamstrings 10 mins prior to ex Interventions - Exercise/Activities/Manual Therapy Exercises/Activities: pt received LLE: hamstring stretch, performed QS with heel prop, hamstring set, HS, 2 sets of 10 reps, SAQ, hip flex, SLR with 2#wt 2 sets of 10 reps. LAQ 2 sets of 10. Standing, hip flex, ham sets, short squats, forward lunges 2 sets of 10 reps. Leg press 2 sets 10 with 90#, 1 set of 10 with 105#. pt rode bike 2mins 10 secs (1 min 20 secs nonstop). Total minutes of Exercise: 43 Manual Therapy: n/a HOME EXERCISE PROGRAM: pt given written HEP including: AP, QS, HS, SAQ, LAQ, heel prop. Added standing hip flex and standing ham curls 04/23/19 - Charges Timed Code Treatment Minutes: 43 Total Treatment Time: 55 Procedures billed for this date of service:: ex 3, hot pack Assessment: pt is progressing toward goals. pt has met all STG and progressing toward LTG's. pt continues to have decreased ROM L knee. Continues to require verbal cues for gait sequencing. Patient Education: Home Exercise Program, Education of Plan of Care Patient demonstrates compliance with HEP?: Yes Short Term Goals Goal #1: pt independent with initial HEP Goal to be met by: 05/09/19 Progress towards Goal:: Met Goal #2: Improve L knee flex 90 ext -5 Goal to be met by: 05/09/19 (flex 96 ext -5) Progress towards Goal:: Met Goal #3: Decrease edema LLE Goal to be met by: 05/09/19 Progress towards Goal:: Met Goal #4: Decrease pain L knee < 7/10 Goal to be met by: 05/09/19 (5/10) Progress towards Goal:: Met Penitentiary Goals Goal #1: Improve L knee flex 100 ext 0 Goal to be met by: 05/30/19 Progress towards goal: Progressing Goal #2: pt amb with least AD with improved gait sequencing no LOB Goal to be met by: 05/30/19 Progress towards goal: Progressing Goal #3: pt demonstrate improved LE functional scale to >25 Goal to be met by: 05/30/19 Progress towards goal: Progressing Goal #4: pt ascend/descend steps at home independently with less pain Goal to be met by: 05/30/19 Progress towards goal: Progressing Plan Dates of Penitentiary Goals: 05/30/19 Expiration date of current Insurance Approval:: n/a PLAN: plan to reassess next visit. Progress with therex for ROM and gait.
== END 2019-05-10 23:59 ==
PROVIDERS: ATTEND Orthopaedic Surgery
DX: M17.12 Unilateral primary osteoarthritis, left knee (principal); Z47.1 Aftercare following joint replacement surgery; Z96.652 Presence of left artificial knee joint; R26.9 Unspecified abnormalities of gait and mobility; R53.1 Weakness

== ENCOUNTER 2021-03-25 08:27 | Observation (INO) ==
--- NOTE | 2021-03-25 08:30 | ED.PDOC ---
General ED Provider: Dr. CHARLI VAUGHAN Chief Complaint: Chest Pain Stated Complaint: 65 year old male presents with substernal chest pains radiating to jaw and left arm. Walks 4-5 miles daily but has been noticing some increasing chest discomfort over last 2-3 weeks. Also notices some SOB. Denies fever, chills or sweats, n/v/d, abdominal pain or urinary sx. Tolerating po well. Primarily followed at the [facility] in [place]. PMH + for HTN,and low back pain. Time Seen by Provider: 03/25/21 08:30 Mode of Arrival: Ambulance Information Source: Patient Exam Limitations: No limitations Primary Care Provider: [facility] Referred to ED by: Other (self) Nursing and Triage Documentation Reviewed and Agree: Yes Does patient meet sepsis criteria?: No System Inflammatory Response Syndrome: Not Applicable Sepsis Protocol: For patient's 13 years and over: Temp is 96.8 and below OR 101 and greater Pulse >90 BPM Resp >20/minute Acutely Altered Mental Status Are patient's symptoms suggestive of a new infection, such as: -Pneumonia -Skin, Soft Tissue -Endocarditis -UTI -Bone, Joint Infection -Implantable Device -Acute Abdominal Infection -Wound Infection -Meningitis -Blood Stream Catheter Infection -Unknown Cardiovascular Complaint Exam Chest Pain Complaint/Exam Onset: Gradual Duration: 2-3 weeks Symptoms Are: Still present Timing: Intermittent Length of Chest Pain Episodes: 10- 15 minutes Initial Severity: Mild Current Severity: Mild Location: Reports Midsternal Pain Radiates: Reports Left shoulder, Jaw and Neck Character: Reports Aching and Pressure Aggravating: Reports Exertion Alleviating: Reports Rest Associated Signs and Symptoms: Reports Diaphoresis, Nausea and Short of air Related History: Reports Similar episode Related Surgical History: Reports None History of Healthcare-Acquired Pneumonia: Reports No AMI/ACS Risk Factors: Reports Family history and Hypertension TAD Risk Factors: Reports Hypertension Pulmonary Embolism Risk Factors: Reports None Prior Care for this Complaint: No Recent Stress Test: No Recent Echo/LV Function: No JVD Present: No Subcutaneous Emphysema Present: No Diminshed Breath Sounds: No Reproducible Chest Wall Pain: No Bilateral Pulses Present: Yes Unequal Pulses Noted: No If Risk Factors for AMI/ACS Consider: EKG, Cardiac Enzymes, Serial Studies, Oxygen and Aspirin If Risk Factors for TAD Consider: Blood pressure control Documents Reviewed: Medical records, Labs, Imaging and EKG Care and Dx Studies Discussed With: Family and Consultants Establishment Guide Consulted: No Differential Diagnoses: ACS and Stable Angina Quality Indicators For Acute [place] or Cardiac Chest Pain: EKG in 10min. Quality Indicator For Non-Traumatic Chest Pain/Syncope: EKG Performed Patient Advised to Stop Smoking: No Review of Systems Review Of Systems Constitutional: Reports No symptoms Eyes: Reports No symptoms Ears, Nose, Mouth, Throat: Reports No symptoms Respiratory: Reports Short of air Cardiac: Reports Chest pain GI: Reports No symptoms : Reports No symptoms Musculoskeletal: Reports No symptoms Skin: Reports No symptoms Neurological: Reports No symptoms Endocrine: Reports No symptoms Hematologic/Lymphatic: Reports No symptoms All Other Systems: Reviewed and Negative [facility] Medical History Acute lumbar back pain Bronchitis Social History Smoking and tobacco status: Former smoker Surgical History History of left knee replacement Physical Exam Physical Exam Appearance: Reports Well-appearing, No pain distress and Well-nourished Ill-appearing: None Pain Distress: None Eyes: Reports CARLY, EOMI and Conjunctiva clear ENT: Reports Ears normal, Nose normal and Oropharynx normal Neck: Supple Respiratory: Reports Airway patent, Breath sounds clear, Breath sounds equal and Respirations nonlabored Cardiovascular: Reports RRR, Pulses normal, No rub and No murmur GI/: Reports Soft, Nontender, No masses, Bowel sounds normal and No Organomegaly Musculoskeletal: Reports Normal strength, ROM intact, No edema and No calf tenderness Skin: Reports Warm, Dry and Normal color Neurological: Reports Sensation intact, Motor intact, Reflexes intact, Cranial nerves intact, Alert and Oriented Psychiatric: Reports Affect appropriate and Mood appropriate Interpretation Radiology Interpretation Radiology Interpretation By: Radiologist Radiology Results: Negative Exam Interpreted: CXR Automobile Rental Agent Time of Automobile Rental Agent Interpretation: 08:25 Rate: Normal Rhythm: Sinus Ectopy: None EKG Interpretation Time of EKG #1: 08:34 Rate: Normal Rhythm: Sinus Ectopy: None Bradford: NL ST Segment: Normal Re-Evaluation Re-Evaluation Time of Re-Evaluation: 10:00 Status: Improved Vital Signs Stable: Yes Appearance: NAD Lungs: Clear Skin: Warm and Dry Neuro: Alert and Oriented X3 CV: RRR Physician Notification Case Discussed Physician Notified: Nehemiah Time of Notification: 10:15 Critical Care Note Critical Care Note Total Critical Care Time (mins): 0 Course Course Hematology/Chemistry: 03/25/21 08:45 03/25/21 08:45 Orders, Labs, Meds: Lab Review 03/25/21 03/25/21 03/25/21 08:45 08:45 08:45 WBC 5.63 RBC 4.84 Hgb 15.1 Hct 43.1 MCV 89.0 MCH 31.2 H MCHC 35.0 RDW Coeff of Mony 12.3 Plt Count 185 Immature Gran % (Auto) 0.2 Neut % (Auto) 57.7 Lymph % (Auto) 32.1 Beauregard % (Auto) 9.1 Eos % (Auto) 0.7 Baso % (Auto) 0.2 Neut # (Auto) 3.3 Lymph # (Auto) 1.8 Beauregard # (Auto) 0.5 Eos # (Auto) 0.0 Baso # (Auto) 0.0 Immature Gran # (Auto) 0.0 Sodium 138.4 Potassium 4.42 Chloride 105.5 Carbon Dioxide 25.2 Anion Gap 12.12 BUN 25.6 H Creatinine 0.80 Estimated GFR (MDRD) 96.00 BUN/Creatinine Ratio 32.00 Glucose 102.9 Calcium 9.29 Total Bilirubin 0.61 AST 31.0 ALT 16.9 Alkaline Phosphatase 65.1 Total Creatine Kinase 88.9 Troponin I < 0.012 NT-Pro-B Natriuret Pep 183.000 H Total Protein 7.26 Albumin 4.50 Globulin 2.76 Albumin/Globulin Ratio 1.63 D-Dimer Adenovirus (PCR) B. pertussis DNA (PCR) B.parapertussis DNA PCR C. pneumoniae DNA (PCR) Coronavirus OC43 (PCR) Coronavirus HKU1 (PCR) Coronavirus 229E (PCR) Coronavirus NL63 (PCR) Human Metapneumovir PCR Influenza Type A (PCR) Influenza B (RT-PCR) M. pneumoniae (PCR) Parainfluenza 1 (PCR) Parainfluenza 2 (PCR) Parainfluenza 3 (PCR) Parainfluenza 4 (PCR) RSV (PCR) Entero/Rhino (PCR) SARS-CoV-2 (PCR) 03/25/21 03/25/21 08:45 09:00 WBC RBC Hgb Hct MCV MCH MCHC RDW Coeff of Mony Plt Count Immature Gran % (Auto) Neut % (Auto) Lymph % (Auto) Beauregard % (Auto) Eos % (Auto) Baso % (Auto) Neut # (Auto) Lymph # (Auto) Beauregard # (Auto) Eos # (Auto) Baso # (Auto) Immature Gran # (Auto) Sodium Potassium Chloride Carbon Dioxide Anion Gap BUN Creatinine Estimated GFR (MDRD) BUN/Creatinine Ratio Glucose Calcium Total Bilirubin AST ALT Alkaline Phosphatase Total Creatine Kinase Troponin I NT-Pro-B Natriuret Pep Total Protein Albumin Globulin Albumin/Globulin Ratio D-Dimer 195.23 Adenovirus (PCR) Not detected B. pertussis DNA (PCR) Not detected B.parapertussis DNA PCR Not detected C. pneumoniae DNA (PCR) Not detected Coronavirus OC43 (PCR) Not detected Coronavirus HKU1 (PCR) Not detected Coronavirus 229E (PCR) Not detected Coronavirus NL63 (PCR) Not detected Human Metapneumovir PCR Not detected Influenza Type A (PCR) Not detected Influenza B (RT-PCR) Not detected M. pneumoniae (PCR) Not detected Parainfluenza 1 (PCR) Not detected Parainfluenza 2 (PCR) Not detected Parainfluenza 3 (PCR) Not detected Parainfluenza 4 (PCR) Not detected RSV (PCR) Not detected Entero/Rhino (PCR) Not detected SARS-CoV-2 (PCR) Not detected Orders Category Date Time Status PLACE PATIENT OBSERVATION .TO MEDSURG (MONITORED BED ADMISSION 03/25/21 10:40 Active ) EKG-(ED ONLY) Stat CARDIO 03/25/21 08:37 Completed EKG-(IP & OP ONLY) DAILY CARDIO 03/25/21 10:45 Ordered EKG-(IP & OP ONLY) DAILY CARDIO 03/26/21 06:00 Ordered EKG-(IP & OP ONLY) DAILY CARDIO 03/26/21 10:45 Ordered EKG-(IP & OP ONLY) DAILY CARDIO 03/27/21 06:00 Ordered OXYGEN Routine CARDIO 03/25/21 10:36 Ordered STRESS ECHO Routine CARDIO 03/25/21 10:41 Ordered STRESS TEST Routine CARDIO 03/25/21 10:41 Ordered ACTIVITY .BR with BRP CARE 03/25/21 10:35 Active INTAKE & OUTPUT Q8HR CARE 03/25/21 10:35 Active INTAKE & OUTPUT Q8HR CARE 03/25/21 10:38 Active IP: INSERT SALINE LOCK ONCE CARE 03/25/21 10:35 Active IP: INSERT SALINE LOCK ONCE CARE 03/25/21 10:38 Active TELEMETRY MONITORING TELE CARE 03/25/21 10:38 Active TELEMETRY MONITORING TELE CARE 03/25/21 10:40 Active VITAL SIGNS Q8HR CARE 03/25/21 10:35 Active CARDIAC DIET DIETARY 03/25/21 Lunch Ordered CBC W/ AUTO DIFF DAILY@0600 LAB 03/26/21 06:00 Ordered CBC W/ AUTO DIFF DAILY@0600 LAB 03/27/21 06:00 Ordered CBC W/ AUTO DIFF Stat LAB 03/25/21 08:45 Completed COMPREHENSIVE METABOLIC PANEL DAILY@0600 LAB 03/26/21 06:00 Ordered COMPREHENSIVE METABOLIC PANEL DAILY@0600 LAB 03/27/21 06:00 Ordered COMPREHENSIVE METABOLIC PANEL Stat LAB 03/25/21 08:45 Completed CREATINE KINASE Stat LAB 03/25/21 08:45 Completed D-DIMER Stat LAB 03/25/21 08:45 Completed NT-PROBNP Stat LAB 03/25/21 08:45 Completed RESPIRATORY PANEL 2.1 (PCR) Stat LAB 03/25/21 09:00 Completed TROPONIN I Q8H LAB 03/25/21 14:00 Ordered TROPONIN I Q8H LAB 03/26/21 00:45 Ordered TROPONIN I Stat LAB 03/25/21 08:45 Completed 0.9 % Sodium Chloride [Saline Flush] MEDS 03/25/21 13:00 Ordered 1 syr IVF Q8HR Acetaminophen [Tylenol] MEDS 03/25/21 10:38 Ordered 650 mg PO Q4H PRN Aspirin [Aspirin Chewable] MEDS 03/25/21 10:16 Discontinued 324 mg PO ONCE STA Aspirin [Aspirin EC] MEDS 03/26/21 08:30 Ordered 81 mg PO DAILYWM Atropine Sulfate Inj [Atropine Sulfate Pfs] MEDS 03/25/21 10:38 Ordered 0.5 mg IVP ONCE PRN Enoxaparin Sodium [Lovenox] MEDS 03/25/21 11:00 Ordered 40 mg SUBCUT DAILY Labetalol HCl [Trandate] MEDS 03/25/21 09:58 Discontinued 20 mg IVP ONCE STA Nitroglycerin [Nitrostat] MEDS 03/25/21 10:16 Active 0.4 mg SL Q5MIN X 3 DOSES PRN RESUSCITATION STATUS Routine OTHERS 03/25/21 10:35 Ordered CHEST, 2 VIEWS PA & LAT Stat RADS 03/25/21 08:39 Completed Medications Generic Name Dose Route Start Last Admin Trade Name Freq PRN Reason Stop Dose Admin Acetaminophen 650 mg 03/25/21 10:38 Acetaminophen 325 Mg Tablet PO Q4H PRN Analgesia Aspirin 81 mg 03/26/21 08:30 Aspirin 81 Mg Tablet.Dr PO DAILYWM KENN Atropine Sulfate 0.5 mg 03/25/21 10:38 Atropine Sulfate Inj 1 Mg/10 Ml Disp.Syrin IVP ONCE PRN Symptomatic Bradycardia Enoxaparin Sodium 40 mg 03/25/21 11:00 Enoxaparin Sodium 40 Mg/0.4 Ml Syr SUBCUT DAILY KENN Nitroglycerin 0.4 mg 03/25/21 10:16 Nitroglycerin 0.4 Mg Tab.Subl SL Q5MIN X 3 DOSES PRN Chest Pain Sodium Chloride 1 syr 03/25/21 13:00 0.9% Sodium Chloride 10 Ml Disp.Syrin IVF Q8HR [facility] Discontinued Medications Generic Name Dose Route Start Last Admin Trade Name Freq PRN Reason Stop Dose Admin Aspirin 324 mg 03/25/21 10:16 03/25/21 10:25 Aspirin 81 Mg Tab.Chew PO 03/25/21 10:17 324 mg ONCE STA Administration Labetalol HCl 20 mg 03/25/21 09:58 03/25/21 10:08 Labetalol Hcl 20 Mg/4 Ml Disp.Syrin IVP 03/25/21 09:59 20 [place] [address] Diagnostic ImagingDiagnostic Imaging Report : [id number] Patient: ALLEN YATES DAcct:[id number] Record: [id number]: 1955Loc: EDRoom/Bed:Age/Sex: 65 / MADM Status: REG ERDate of Service: 03/25/21 Ordering Physician: CHARLI VAUGHAN MD Procedure(s): CHEST, 2 VIEWS PA & LAT Report Number(s): [id number] Accession Number(s): [id number] cc: CHARLI VAUGHAN MD; HERNAN WADSWORTH EXAM: Chest two views HISTORY: Chest pain COMPARISON: 02/29/2012 TECHNIQUE: Two views of the chest were performed FINDINGS: The lungs are clear. There is no pleural effusion or pneumothorax. The heart is normal in size. The mediastinal contour is normal, noting atherosclerosis. There are no acute abnormalities of the bones. IMPRESSION: No acute cardiopulmonary process. Dictated By:ALLYSON BARAJAS KSigned By:ALLYSON BARAJAS MDDictated Date/Time: 03/25/21901Transcribed Date/Time: 03/25/21901 Vital Signs: Temp Pulse Resp BP Pulse Ox 03/25/21 08:29 98.3 F 68 16 193/94 H 99 AMI Core Clinical Trial Participant Clinical Trial Participant: No Palliative Care Palliative Care: none EKG Initial Interpretation EKG Initial Interpretation Date: 03/25/21 QIAN Risk Score QIAN Risk Score: Risk Score Odds of by 30D 0 0.1 (0.1-0.2) 1 0.3 (0.2-0.3) 2 0.4 (0.3-0.5) 3 0.7 (0.6-0.9) 4 1.2 (1.0-1.5) 5 2.2 (1.9-2.6) 6 3.0 (2.5-3.6) 7 4.8 (3.8-6.1) Discharge Plan Discharge Patient Disposition: PLACED OBSERVATION Discharge Problem: Chest pain Prescriptions: No Action metoprolol succinate 25 mg Tablet Extended Release 24 Hr 12.5 mg PO BID RF: 0 losartan 100 mg Tablet 100 mg PO BID RF: 0 cyclobenzaprine 10 mg Tablet 10 mg PO TID PRN (Reason: Spasms) RF: 0 ED Provider: CHARLI VAUGHAN Condition: Good Physician Progress Note: 65 year old malke with c/o increasing exertional chest pains for last few weeks jen oincreasing SOB. PMH + for HTN, FH + for CAD and CVA, HTN. Will need admission, serial troponins, stress test and observation. Discussed with Dr. Cerna, he will do stress test this pm. We will admit to him to telemetry.
[2021-03-25 08:58] LABS: BASOPHILS % (AUTO) 0.2 % (0.0-3.0); EOSINOPHILS % (AUTO) 0.7 % (0.0-7.0); HEMATOCRIT 43.1 % (42.0-52.0); HEMOGLOBIN 15.1 g/dl (14.0-18.0); IMMATURE GRANULOCYTE % (AUTO) 0.2 % (0.0-5.0); LYMPHOCYTES # (AUTO) 1.8 K/uL (0.60-3.4); LYMPHOCYTES % (AUTO) 32.1 (10.0-50.0); MEAN CORPUSCULAR HEMOGLOBIN 31.2 pg (27.0-31.0); MONOCYTES # (AUTO) 0.5 K/uL (0.4-2.0); MONOCYTES % (AUTO) 9.1 (0-10); NEUTROPHILS # (AUTO) 3.3 K/ul (2.0-6.9); NEUTROPHILS % (AUTO) 57.7 % (42.2-75.2); PLATELET COUNT 185 10^3/uL (140-440); RDW COEFFICIENT OF VARIATION 12.3 % (11.6-14.8); RED BLOOD COUNT 4.84 10^6/ul (4.70-6.10); WHITE BLOOD COUNT 5.63 K/ul (4.2-10.2)
[2021-03-25 09:05] LABS: BORDETELLA PARAPERTUSSIS (PCR) NOT DETECTED (NOT DETECT); BORDETELLA PERTUSSIS (PCR) NOT DETECTED (NOT DETECT); CHLAMYDIA PNEUMONIAE (PCR) NOT DETECTED (NOT DETECT); CORONAVIRUS 229E (PCR) NOT DETECTED (NOT DETECT); CORONAVIRUS HKU1 (PCR) NOT DETECTED (NOT DETECT); CORONAVIRUS NL63 (PCR) NOT DETECTED (NOT DETECT); CORONAVIRUS OC43 (PCR) NOT DETECTED (NOT DETECT); HUMAN METAPNEUMOVIRUS (PCR) NOT DETECTED (NOT DETECT); HUMAN RHINOVIRUS/ENTEROV (PCR) NOT DETECTED (NOT DETECT); INFLUENZA B (PCR) NOT DETECTED (NOT DETECT); MYCOPLASMA PNEUMONIAE (PCR) NOT DETECTED (NOT DETECT); PARAINFLUENZA VIRUS 1 (PCR) NOT DETECTED (NOT DETECT); PARAINFLUENZA VIRUS 2 (PCR) NOT DETECTED (NOT DETECT); PARAINFLUENZA VIRUS 3 (PCR) NOT DETECTED (NOT DETECT); PARAINFLUENZA VIRUS 4 (PCR) NOT DETECTED (NOT DETECT); RESPIRATORY SYNCYTIAL V (PCR) NOT DETECTED (NOT DETECT); SARS_COV_2 (PCR) NOT DETECTED (NOT DETECT)
[2021-03-25 09:06] LABS: ALANINE AMINOTRANSFERASE 16.9 U/L (0-50); ALKALINE PHOSPHATASE 65.1 U/L (56-119); BILIRUBIN,TOTAL 0.61 mg/dL (0.2-1.3); BLOOD UREA NITROGEN 25.6 mg/dL (9-20); CALCIUM 9.29 mg/dL (8.4-10.2); CARBON DIOXIDE 25.2 mmol/L (22-30.0); CHLORIDE 105.5 mmol/L (98-107); CREATINE KINASE 88.9 U/L (55-170); GLUCOSE 102.9 mg/dL (74-106); POTASSIUM 4.42 mmol/L (3.5-5.1); SODIUM 138.4 mmol/L (134.5-145); TOTAL PROTEIN 7.26 g/dL (6.3-8.2)
--- NOTE | 2021-03-25 09:07 | DI ---
EXAM: Chest two views HISTORY: Chest pain COMPARISON: 02/29/2012 TECHNIQUE: Two views of the chest were performed FINDINGS: The lungs are clear. There is no pleural effusion or pneumothorax. The heart is normal i n size. The mediastinal contour is normal, noting atherosclerosis. There are no acute abnormalities of the bones. IMPRESSION: No acute cardiopulmonary process.
[2021-03-25 09:24] LABS: TROPONIN I < 0.012 ng/ml (0.0000-0.120)
[2021-03-25] MEDS ORDERED: TRANDATE IVP STA (09:58)
[2021-03-25 10:01] LABS: ADENOVIRUS (PCR) NOT DETECTED (NOT DETECT)
[2021-03-25] MEDS ORDERED: ASPIRIN CHEWABLE PO STA (10:16)
[2021-03-25] MEDS ORDERED: NITROSTAT SL PRN (10:16)
[2021-03-25] MEDS ORDERED: TYLENOL PO PRN (10:38)
[2021-03-25] MEDS ORDERED: ATROPINE SULFATE PFS IVP PRN (10:38)
[2021-03-25] MEDS ORDERED: LOVENOX SUBCUT SCH (11:00)
[2021-03-25 12:04] VITALS: TEMP 97.8; BMI 27.6
[2021-03-25] MEDS ORDERED: FLEXERIL PO PRN (13:03)
[2021-03-25] MEDS ORDERED: MOTRIN PO PRN (13:04)
[2021-03-25] MEDS: NORCO 5-325 PO SCH ×2 (13:13→16:51)
--- NOTE | 2021-03-25 15:27 | STRESSECHO ---
Date of Test: 03/25/2021 Ordering Physician: DR. VAUGHAN AND DR. TAYLOR- [place] Occupation:RETIRED Reason for Exam: CHEST PAIN, HYPERTENSION Smoking History: NONE Height: 68" Weight: 184 Current Medications: METOPROLOL, LOSARTAN, CYCLOBENZAPRINE Resting EKG: SINUS RHYTHM/ LEFT VENTRICULAR HYPERTROPHY Target Heart Rate: 130 / 153 OXYGEN SATURATION AT REST ON ROOM AIR: 96% S-T SEGMENT STAGE MPH/GRADE HEART RATE BPM BLOOD PRESSURE MMHG RHYTHM +/- ELEVATION DEPRESSION SYMPTOMS AT REST 55 160/90 SR X NONE 1 1.7/10% 90 SR X NONE 2 2.5/12% 3 3.4/14% 4 4.2/16% 5 5.0/18% Immediately After 95 SR X SHORTNESS OF BREATH Minutes Post Exercise 1.5 68 174/84 SR X NONE Minutes Post Exercise 5 62 174/84 SR X NONE DURATION OF EXERCISE: 3 MIN 45 SEC MAXIMUM HEART RATE REACHED: 95 REASON FOR TERMINATION: SHORTNESS OF BREATH INTERPRETATION: 99% OXYGEN SATURATION WITH EXERCISE METS 6.8 1. NO EVIDENCE OF ISCHEMIA BY ST-T WAVE FROM BASELINE HEART RATE 55BPM TO 92BPM (DID NOT REACH TARGET HEART RATE) 2. VENTRICULAR BIGEMINY WITH EXERCISE OFF AND ON INITIALLY WITH FEW PREMATURE ATRIAL CONTRACTIONS 3. NO CHEST PAIN OR DISCOMFORT 4. BLOOD PRESSURE RESPONSE BORDERLINE HYPERTENSION AT REST AND WITH EXERCISE 5. NO PREMATURE VENTRICULAR CONTRACTIONS OR ARRHYTHMIAS 3 MINUTES AFTER EXERCISE RECOMMEND STRESS SESTAMIBI MTDD
--- NOTE | 2021-03-25 15:32 | ECHO2D ---
Date of Exam: 03/25/2021 Ordering Physician: DR. VAUGHAN AND DR. TAYLOR-[place] Room #: 105 Reason for Echo: CHEST PAIN, HYPERTENSION M-Mode Normal Adult Results LV Dimensions Normal Adult Results AoV Opening excursions >1.6 >1.6 LVEDD-base- 3.5-5.8 5.2 Ao root dimensions 2.0-3.7 3.5 LVESD-base- 3.1-4.6 L. Atrium dimensions 1.9-3.8 4.5 Post. Wall thickness 0.8-1.1 1.2 IV septum (thickness) 0.7-1.2 1.2 Post. Wall excursion 0.72-1.3 NORMAL Septal motion NORMAL Systolic motion R. Ventricular cavity 1.5-2.0 NORMAL LVEF 60% 62% Paradoxical septal wall motion NORMAL 2-D : ENLARGED LEFT ATRIAL CAVITY. 2-D M Mode Echocardiogram was performed using apical four chamber and left parasternal long and short axis views. Mitral, tricuspid and aortic valves appear to be normal. Contractility of the left ventricle seems to be normal, so is the cavity size. Left atrial cavity size is enlarged. Aortic root appears to be normal. There is no pericardial effusion. There is no thrombus noted in the left ventricle or left atrial cavity. M-MODE: MV: NORMAL AV: NORMAL TV: NORMAL PV: CHAMBER SIZE: ENLARGED LEFT ATRIAL CAVITY WALL MOTION: NORMAL PERICARDIUM: NORMAL INTERPRETATION: 1. BORDERLINE LEFT VENTRICULAR HYPERTROPHY WITH ENLARGED LEFT ATRIAL CAVITY 2. NORMAL LEFT VENTRICULAR CONTRACTILITY AND LEFT VENTRICLE SIZE 3. NORMAL VALVES MTDD
--- NOTE | 2021-03-25 15:34 | ECHOSTRESS ---
Date of Exam: 03/25/2021 Ordering Physician: DR. VAUGHAN AND DR. RAMONA WADSWORTH Reason for Echo: CHEST PAIN, HYPERTENSION M-Mode Normal Adult Results LV Dimensions Normal Adult Results AoV Opening excursions >1.6 LVEDD-base- 3.5-5.8 Ao root dimensions 2.0-3.7 LVESD-base- 3.1-4.6 L. Atrium dimensions 1.9-3.8 Post. Wall thickness 0.8-1.1 IV septum (thickness) 0.7-1.2 Post. Wall excursion 0.72-1.3 Septal motion Systolic motion R. Ventricular cavity 1.5-2.0 LVEF 60% Paradoxical septal wall motion 2-D: NORMAL LEFT VENTRICULAR CONTRACTILITY RESTING AND POST EXERCISE M-MODE: MV: AV: TV: PV: CHAMBER SIZE: WALL MOTION: NORMAL LEFT VENTRICULAR CONTRACTILITY RESTING AND POST EXERCISE PERICARDIUM: INTERPRETATION: 1. NORMAL LEFT VENTRICULAR CONTRACTILITY RESTING AND POST EXERCISE MTDD
[2021-03-25 16:00] VITALS: BP 159/76
--- NOTE | 2021-03-25 16:20 | PCM ---
Chief Complaint Chief Complaint: exertional chest pain for 3 weeks. History of Present Illness History of Present Illness: Mr Cox is a 65 year old male with 2-3 weeks of progressive substernal chest pains radiating to his left arm and jaw with exertion. PMH + for HTN and low backpain, FH + for CVA, HTN and CAD. He denies, fever, chills or sweats, n/v/d, abdominal pain or urinary sx. No significant surgeries or other active medical problems. Review of Systems Constitutional: Reports No symptoms; Denies Fever, Chills, Weakness, Sweats, Fatigue, Loss of appetite and Other Eyes: Reports No symptoms; Denies Blurred vision, Double-vision, Discharge, Itching, Pain, Redness, Photophobia and Other Ears: Reports No symptoms; Denies Pain, Bleeding, Drainage, Ringing, Hearing loss and Other Nose: Reports No symptoms Throat: Reports No symptoms Mouth: Reports No symptoms Respiratory: Reports Shortness of air; Denies Hemoptysis and Pain with breathing Cardiovascular: Reports Chest pain and Left arm pain Gastrointestinal: Reports No symptoms Genitourinary: Reports No symptoms Neurological: Reports No symptoms Musculoskeletal: Reports No symptoms Skin: Reports No symptoms Immunology: Reports No symptoms Hematology: Reports No symptoms Endocrine: Reports No symptoms Psychiatric: Reports No symptoms Allergies Allergies Allergy/AdvReac Type Severity Reaction Status Date / Time butorphanol tartrate Allergy Unknown Verified 03/25/21 08:35 [From Stadol] chlorpromazine HCl Allergy Unknown Verified 03/25/21 08:35 [From Thorazine] doxepin Allergy Unknown Verified 03/25/21 08:35 nalbuphine HCl [From Nubain] Allergy Unknown Verified 03/25/21 08:35 prochlorperazine edisylate Allergy Unknown Verified 03/25/21 08:35 [From Compazine] prochlorperazine maleate Allergy Unknown Verified 03/25/21 08:35 [From Compazine] zolpidem tartrate Allergy sleep Verified 03/25/21 08:35 [From Ambien] walking RONY Inhibitors AdvReac Intermediate Cough Verified 03/25/21 08:35 lisinopril AdvReac Intermediate Cough Verified 03/25/21 08:35 [facility] Medical History Acute lumbar back pain Bronchitis Surgical History History of appendectomy History of left knee replacement Hx of shoulder surgery Family History (Updated 03/25/21 @ 15:54 by EUGENIA ESQUEDA RN) BROTHER CVA (cerebral vascular accident) Hx of CABG H/O heart artery stent SISTER Diabetes Hypertension Thyroid disease Mother Diabetes Myocardial infarction COPD (chronic obstructive pulmonary disease) DAUGHTER No problems noted. FATHER Lung disease Social History Smoking and tobacco status: Former smoker Medications Medications: Medications Generic Name Dose Route Start Last Admin Trade Name Freq PRN Reason Stop Dose Admin Acetaminophen 650 mg 03/25/21 10:38 Acetaminophen 325 Mg Tablet PO Q4H PRN Analgesia Hydrocodone Bitart/Acetaminophen 1 tab 03/25/21 13:30 03/25/21 13:13 Hydrocodone Bit/Acetaminophen 5/325 Mg Tablet PO 1 tab TID KENN Administration Aspirin 81 mg 03/26/21 08:30 Aspirin 81 Mg Tablet.Dr PO DAILYWM KENN Atropine Sulfate 0.5 mg 03/25/21 10:38 Atropine Sulfate Inj 1 Mg/10 Ml Disp.Syrin IVP ONCE PRN Symptomatic Bradycardia Cyclobenzaprine HCl 10 mg 03/25/21 13:03 Cyclobenzaprine Hcl 10 Mg Tablet PO TID PRN Analgesia Enoxaparin Sodium 40 mg 03/25/21 11:00 03/25/21 11:46 Enoxaparin Sodium 40 Mg/0.4 Ml Syr SUBCUT 40 mg DAILY KENN Administration Ibuprofen 200 - 400 mg 03/25/21 13:04 Ibuprofen 400 Mg Tablet PO Q6HR PRN Analgesia Losartan Potassium 50 mg 03/25/21 21:00 Losartan Potassium 100 Mg Tablet PO BID KENN Metoprolol Succinate 12.5 mg 03/25/21 21:00 Metoprolol Succinate 25 Mg Tab.Er.24h PO BID KENN Nitroglycerin 0.4 mg 03/25/21 10:16 Nitroglycerin 0.4 Mg Tab.Subl SL Q5MIN X 3 DOSES PRN Chest Pain Sodium Chloride 1 syr 03/25/21 13:00 03/25/21 12:52 0.9% Sodium Chloride 10 Ml Disp.Syrin IVF 1 syr Q8HR KENN Administration Body Composition Height: 5 ft 8 in Weight: 181 lb 14.102 oz Body Mass Index (BMI): 27.6 Vital Signs Temperature: 97.8 F Pulse Rate: 56 Respiratory Rate: 20 Blood Pressure: 159/76 O2 Sat by Pulse Oximetry: 98 Physical Examination Appearance: Reports Well-appearing, No pain distress and Well-nourished Ill-appearing: None Pain Distress: None Eyes: Reports CARLY, EOMI and Conjunctiva clear ENT: Reports Ears normal, Nose normal and Oropharynx normal Respiratory: Reports Airway patent, Breath sounds clear and Breath sounds equal Cardiovascular: Reports RRR, Pulses normal, No rub and No murmur GI/: Reports Soft, Nontender, No masses, Bowel sounds normal and No Organomegaly Musculoskeletal: Reports Normal strength, ROM intact, No edema and No calf tenderness Skin: Reports Warm, Dry and Normal color Neurological: Reports Sensation intact, Motor intact, Reflexes intact, Cranial nerves intact, Alert and Oriented Psychiatric: Reports Affect appropriate and Mood appropriate Lab/Tests/Diagnostic Imaging Lab/Tests/Diagnostic Imaging: Lab Review 03/25/21 03/25/21 03/25/21 08:45 08:45 08:45 WBC 5.63 RBC 4.84 Hgb 15.1 Hct 43.1 MCV 89.0 MCH 31.2 H MCHC 35.0 RDW Coeff of Mony 12.3 Plt Count 185 Immature Gran % (Auto) 0.2 Neut % (Auto) 57.7 Lymph % (Auto) 32.1 Jewell % (Auto) 9.1 Eos % (Auto) 0.7 Baso % (Auto) 0.2 Neut # (Auto) 3.3 Lymph # (Auto) 1.8 Jewell # (Auto) 0.5 Eos # (Auto) 0.0 Baso # (Auto) 0.0 Immature Gran # (Auto) 0.0 Sodium 138.4 Potassium 4.42 Chloride 105.5 Carbon Dioxide 25.2 Anion Gap 12.12 BUN 25.6 H Creatinine 0.80 Estimated GFR (MDRD) 96.00 BUN/Creatinine Ratio 32.00 Glucose 102.9 Calcium 9.29 Total Bilirubin 0.61 AST 31.0 ALT 16.9 Alkaline Phosphatase 65.1 Total Creatine Kinase 88.9 Troponin I < 0.012 NT-Pro-B Natriuret Pep 183.000 H Total Protein 7.26 Albumin 4.50 Globulin 2.76 Albumin/Globulin Ratio 1.63 D-Dimer Adenovirus (PCR) B. pertussis DNA (PCR) B.parapertussis DNA PCR C. pneumoniae DNA (PCR) Coronavirus OC43 (PCR) Coronavirus HKU1 (PCR) Coronavirus 229E (PCR) Coronavirus NL63 (PCR) Human Metapneumovir PCR Influenza Type A (PCR) Influenza B (RT-PCR) M. pneumoniae (PCR) Parainfluenza 1 (PCR) Parainfluenza 2 (PCR) Parainfluenza 3 (PCR) Parainfluenza 4 (PCR) RSV (PCR) Entero/Rhino (PCR) SARS-CoV-2 (PCR) 03/25/21 03/25/21 03/25/21 08:45 09:00 14:10 WBC RBC Hgb Hct MCV MCH MCHC RDW Coeff of Mony Plt Count Immature Gran % (Auto) Neut % (Auto) Lymph % (Auto) Jewell % (Auto) Eos % (Auto) Baso % (Auto) Neut # (Auto) Lymph # (Auto) Jewell # (Auto) Eos # (Auto) Baso # (Auto) Immature Gran # (Auto) Sodium Potassium Chloride Carbon Dioxide Anion Gap BUN Creatinine Estimated GFR (MDRD) BUN/Creatinine Ratio Glucose Calcium Total Bilirubin AST ALT Alkaline Phosphatase Total Creatine Kinase Troponin I < 0.012 NT-Pro-B Natriuret Pep Total Protein Albumin Globulin Albumin/Globulin Ratio D-Dimer 195.23 Adenovirus (PCR) Not detected B. pertussis DNA (PCR) Not detected B.parapertussis DNA PCR Not detected C. pneumoniae DNA (PCR) Not detected Coronavirus OC43 (PCR) Not detected Coronavirus HKU1 (PCR) Not detected Coronavirus 229E (PCR) Not detected Coronavirus NL63 (PCR) Not detected Human Metapneumovir PCR Not detected Influenza Type A (PCR) Not detected Influenza B (RT-PCR) Not detected M. pneumoniae (PCR) Not detected Parainfluenza 1 (PCR) Not detected Parainfluenza 2 (PCR) Not detected Parainfluenza 3 (PCR) Not detected Parainfluenza 4 (PCR) Not detected RSV (PCR) Not detected Entero/Rhino (PCR) Not detected SARS-CoV-2 (PCR) Not detected Orders Category Date Time Status PLACE PATIENT OBSERVATION .TO MEDS[facility] (MONITORED BED ADMISSION 03/25/21 10:40 Active ) ECHOCARDIOGRAM 2D-M MODE Routine CARDIO 03/25/21 10:41 Completed EKG-(ED ONLY) Stat CARDIO 03/25/21 08:37 Completed EKG-(IP & OP ONLY) DAILY CARDIO 03/26/21 06:00 Ordered EKG-(IP & OP ONLY) DAILY CARDIO 03/27/21 06:00 Ordered STRESS ECHO Routine CARDIO 03/25/21 10:41 Completed ACTIVITY .BR with BRP CARE 03/25/21 10:35 Active INTAKE & OUTPUT Q8HR CARE 03/25/21 10:35 Active INTAKE & OUTPUT Q8HR CARE 03/25/21 10:38 Active IP: INSERT SALINE LOCK ONCE CARE 03/25/21 10:35 Active IP: INSERT SALINE LOCK ONCE CARE 03/25/21 10:38 Active TELEMETRY MONITORING TELE CARE 03/25/21 10:38 Active TELEMETRY MONITORING TELE CARE 03/25/21 10:40 Completed VITAL SIGNS Q8HR CARE 03/25/21 10:35 Active CARDIAC DIET DIETARY 03/25/21 Lunch Ordered CBC W/ AUTO DIFF DAILY@0600 LAB 03/26/21 06:00 Ordered CBC W/ AUTO DIFF DAILY@0600 LAB 03/27/21 06:00 Ordered CBC W/ AUTO DIFF Stat LAB 03/25/21 08:45 Completed COMPREHENSIVE METABOLIC PANEL DAILY@0600 LAB 03/26/21 06:00 Ordered COMPREHENSIVE METABOLIC PANEL DAILY@0600 LAB 03/27/21 06:00 Ordered COMPREHENSIVE METABOLIC PANEL Stat LAB 03/25/21 08:45 Completed CREATINE KINASE Stat LAB 03/25/21 08:45 Completed D-DIMER Stat LAB 03/25/21 08:45 Completed NT-PROBNP Stat LAB 03/25/21 08:45 Completed RESPIRATORY PANEL 2.1 (PCR) Stat LAB 03/25/21 09:00 Completed TROPONIN I Q8H LAB 03/25/21 14:10 Completed TROPONIN I Q8H LAB 03/26/21 00:45 Ordered TROPONIN I Stat LAB 03/25/21 08:45 Completed 0.9 % Sodium Chloride [Saline Flush] MEDS 03/25/21 13:00 Active 1 syr IVF Q8HR Acetaminophen [Tylenol] MEDS 03/25/21 10:38 Active 650 mg PO Q4H PRN Aspirin [Aspirin Chewable] MEDS 03/25/21 10:16 Discontinued 324 mg PO ONCE STA Aspirin [Aspirin EC] MEDS 03/26/21 08:30 Active 81 mg PO DAILYWM Atropine Sulfate Inj [Atropine Sulfate Pfs] MEDS 03/25/21 10:38 Active 0.5 mg IVP ONCE PRN Cyclobenzaprine HCl [Flexeril] MEDS 03/25/21 13:03 Active 10 mg PO TID PRN Enoxaparin Sodium [Lovenox] MEDS 03/25/21 11:00 Active 40 mg SUBCUT DAILY Hydrocodone Bit/Acetaminophen [[place] 5-325] MEDS 03/25/21 13:30 Active 1 tab PO TID Ibuprofen [Motrin] MEDS 03/25/21 13:04 Active 200 - 400 mg PO Q6HR PRN Labetalol HCl [Trandate] MEDS 03/25/21 09:58 Discontinued 20 mg IVP ONCE STA Losartan Potassium [Cozaar] MEDS 03/25/21 21:00 Active 50 mg PO BID Metoprolol Succinate [Toprol Xl] MEDS 03/25/21 21:00 Active 12.5 mg PO BID Nitroglycerin [Nitrostat] MEDS 03/25/21 10:16 Active 0.4 mg SL Q5MIN X 3 DOSES PRN RESUSCITATION STATUS Routine OTHERS 03/25/21 10:35 Ordered CHEST, 2 VIEWS PA & LAT Stat RADS 03/25/21 08:39 Completed Medications Generic Name Dose Route Start Last Admin Trade Name Freq PRN Reason Stop Dose Admin Acetaminophen 650 mg 03/25/21 10:38 Acetaminophen 325 Mg Tablet PO Q4H PRN Analgesia Hydrocodone Bitart/Acetaminophen 1 tab 03/25/21 13:30 03/25/21 13:13 Hydrocodone Bit/Acetaminophen 5/325 Mg Tablet PO 1 tab TID KENN Administration Aspirin 81 mg 03/26/21 08:30 Aspirin 81 Mg Tablet.Dr PO DAILYWM [facility] Atropine Sulfate 0.5 mg 03/25/21 10:38 Atropine Sulfate Inj 1 Mg/10 Ml Disp.Syrin IVP ONCE PRN Symptomatic Bradycardia Cyclobenzaprine HCl 10 mg 03/25/21 13:03 Cyclobenzaprine Hcl 10 Mg Tablet PO TID PRN Analgesia Enoxaparin Sodium 40 mg 03/25/21 11:00 03/25/21 11:46 Enoxaparin Sodium 40 Mg/0.4 Ml Syr SUBCUT 40 mg DAILY KENN Administration Ibuprofen 200 - 400 mg 03/25/21 13:04 Ibuprofen 400 Mg Tablet PO Q6HR PRN Analgesia Losartan Potassium 50 mg 03/25/21 21:00 Losartan Potassium 100 Mg Tablet PO BID KENN Metoprolol Succinate 12.5 mg 03/25/21 21:00 Metoprolol Succinate 25 Mg Tab.Er.24h PO BID KENN Nitroglycerin 0.4 mg 03/25/21 10:16 Nitroglycerin 0.4 Mg Tab.Subl SL Q5MIN X 3 DOSES PRN Chest Pain Sodium Chloride 1 syr 03/25/21 13:00 03/25/21 12:52 0.9% Sodium Chloride 10 Ml Disp.Syrin IVF 1 syr Q8HR KENN Administration Discontinued Medications Generic Name Dose Route Start Last Admin Trade Name Freq PRN Reason Stop Dose Admin Aspirin 324 mg 03/25/21 10:16 03/25/21 10:25 Aspirin 81 Mg Tab.Chew PO 03/25/21 10:17 324 mg ONCE STA Administration Labetalol HCl 20 mg 03/25/21 09:58 03/25/21 10:08 Labetalol Hcl 20 Mg/4 Ml Disp.Syrin IVP 03/25/21 09:59 20 mg ONCE STA Administration Plan Plan: 65 year old male with history of 2-3 weeks of progressive substernal CP, worse with exertion. PMH + for labile, poorly controlled HTN,and FH+ for CAD. Will admit for expedited rule out and cardiology consultation with Dr. Cerna and stress echo. Anticipate discharge if ED and Inpt workup negative.
--- NOTE | 2021-03-25 17:09 | PCM.PROG ---
Date Seen by Provider: 03/25/21 Time Seen by Provider: 17:05 Subjective: I feel fine. Objective: Vitals: T=97.8 F, P=56, R=20, JZ=988/76, SPO2=98 HEENT: ATNC Neck: supple Lungs: Clear CVS: RRR Abdomen: benign Extremities: no CCERP Neurological: Intact without focal deficits Skin: No lesions Lab/Tests/Diagnostic Imaging: EKG, Troponins all negative, Passed stress test with dimple sign of ischemic heart disease. Discussed with Dr. Cerna, agree safe to discharge home and follow up with PCP. Plan: A/P : 65 year old male with exertional chest pains of uncertain etiology. Patient agrees to modify his activitya nd [facility]. Will Increase his metoprolol to 25 bid and [facility].He was advised to return to the ED if increased or recurrent Chest pains or SOB.
--- NOTE | 2021-03-25 17:12 | PCM.PROG ---
History of Present Illness: Admitted 03/25/21 11:11, this 65 year old /WHITE/M for eval of 2-3 weeks of exertional chest pains. PMH + for HTN, strong FH + for CAD and CVA. Physical Examination: Vitals: Temperature 97.8 F, Pulse 56, Respirations 20, Blood Pressure 159/76, SPO2 98 Body Measurements: Height 5 ft 8 in, Weight 181 lb 14.102 oz, BMI 27.6- Overweight HEENT: ATNC, EOMI, PERRLA neck: supple, Pharynx clear Chest clear to A/P Cor: s4, S1, S2 CONCHITA LLSB Abd: benign without HSM EXT: no CCERP NEuro intact without focal deficits. Allergies Allergy/AdvReac Type Severity Reaction Status Date / Time butorphanol tartrate Allergy Unknown Verified 03/25/21 08:35 [From Stadol] chlorpromazine HCl Allergy Unknown Verified 03/25/21 08:35 [From Thorazine] doxepin Allergy Unknown Verified 03/25/21 08:35 nalbuphine HCl [From Nubain] Allergy Unknown Verified 03/25/21 08:35 prochlorperazine edisylate Allergy Unknown Verified 03/25/21 08:35 [From Compazine] prochlorperazine maleate Allergy Unknown Verified 03/25/21 08:35 [From Compazine] zolpidem tartrate Allergy sleep Verified 03/25/21 08:35 [From Ambien] walking RONY Inhibitors AdvReac Intermediate Cough Verified 03/25/21 08:35 lisinopril AdvReac Intermediate Cough Verified 03/25/21 08:35 Medications: Medications Generic Name Dose Route Start Last Admin Trade Name Freq PRN Reason Stop Dose Admin Acetaminophen 650 mg 03/25/21 10:38 Acetaminophen 325 Mg Tablet PO Q4H PRN Analgesia Hydrocodone Bitart/Acetaminophen 1 tab 03/25/21 13:30 03/25/21 16:51 Hydrocodone Bit/Acetaminophen 5/325 Mg Tablet PO 1 tab TID KENN Administration Aspirin 81 mg 03/26/21 08:30 Aspirin 81 Mg Tablet. PO DAILYWM KENN Atropine Sulfate 0.5 mg 03/25/21 10:38 Atropine Sulfate Inj 1 Mg/10 Ml Disp.Syrin IVP ONCE PRN Symptomatic Bradycardia Cyclobenzaprine HCl 10 mg 03/25/21 13:03 Cyclobenzaprine Hcl 10 Mg Tablet PO TID PRN Analgesia Enoxaparin Sodium 40 mg 03/25/21 11:00 03/25/21 11:46 Enoxaparin Sodium 40 Mg/0.4 Ml Syr SUBCUT 40 mg DAILY KENN Administration Ibuprofen 200 - 400 mg 03/25/21 13:04 Ibuprofen 400 Mg Tablet PO Q6HR PRN Analgesia Losartan Potassium 50 mg 03/25/21 21:00 Losartan Potassium 100 Mg Tablet PO BID KENN Metoprolol Succinate 12.5 mg 03/25/21 21:00 Metoprolol Succinate 25 Mg Tab.Er.24h PO BID KENN Nitroglycerin 0.4 mg 03/25/21 10:16 Nitroglycerin 0.4 Mg Tab.Subl SL Q5MIN X 3 DOSES PRN Chest Pain Sodium Chloride 1 syr 03/25/21 13:00 03/25/21 12:52 0.9% Sodium Chloride 10 Ml Disp.Syrin IVF 1 syr Q8HR KENN Administration ASSESSMENT: Please see below. 65 yearold male with exertional chest pain of uncertain etiology. His stress echo dis not show significant ischemic disease so we will discharge him home with PCP follow up. We will increase his bete karyn to 25 BID. [facility] Medical History Acute lumbar back pain Bronchitis Family History (Updated 03/25/21 @ 15:54 by EUGENIA ESQUEDA, RN) BROTHER CVA (cerebral vascular accident) Hx of CABG H/O heart artery stent SISTER Diabetes Hypertension Thyroid disease Mother Diabetes Myocardial infarction COPD (chronic obstructive pulmonary disease) DAUGHTER No problems noted. FATHER Lung disease Social History Smoking and tobacco status: Former smoker Surgical History History of appendectomy History of left knee replacement Hx of shoulder surgery
[2021-03-25] MEDS ORDERED: COZAAR PO SCH ×2 (21:00)
[2021-03-25] MEDS ORDERED: TOPROL XL PO SCH (21:00)
[2021-03-26] MEDS ORDERED: ASPIRIN EC PO SCH (08:30)
--- NOTE | 2021-04-17 16:46 | PCM.DC ---
Final Diagnosis: Chest pain of uncertain etiology Reason for Hospitalization: Progressive exertional chest pains suggestive for angina in a high risk male. He needed a rule out for ACS followed by a stress echo to evaluate him for ACS risk. Prognosis at Discharge: Good, pending cardiology follow up and further testing Condition at Discharge: good Medications at Discharge: Ambulatory Orders Medication Instructions Recorded cyclobenzaprine 10 mg tablet 10 mg PO TID PRN 10/21/19 hydrocodone 5 mg-acetaminophen 325 1 tab PO TID 03/25/21 mg tablet ibuprofen 200 mg tablet 200 - 400 mg PO Q6H PRN 03/25/21 losartan 100 mg tablet 50 mg PO BID 03/25/21 metoprolol succinate 25 mg capsule 25 mg PO DAILY #30 ea 03/25/21 sprinkle, ext. release 24 hr ([place] Sprinkle) metoprolol succinate 25 mg 12.5 mg PO BID 03/25/21 tablet,extended release 24 hr Follow-ups: Dr. Cerna Discharge Disposition: Home Hospital Course: ACS/DC was ruled out by serial EKG's and Troponins. Patient underwent stress echo by Dr. Cerna which was negative. Plan: Patient will have medications adjusted and further outpatient follow up with Dr. Cerna and his PCP at the [facility] to asses cardiac risk
== END 2021-03-25 18:17 | disposition home or self-care (01) ==
LOC: MEDSURG A 08:27 → ED 08:27 → MEDSURG A 11:35 → UNDODISOB 17:29
PROVIDERS: ADMIT Emergency Medicine; ATTEND Emergency Medicine
DX: I25.10 Atherosclerotic heart disease of native coronary artery without angina pectoris; I10 Essential (primary) hypertension; M79.622 Pain in left upper arm; R11.0 Nausea; R06.02 Shortness of breath; R07.9 Chest pain, unspecified